=== PATIENT | female | born 1995 | race Caucasian/White ===

== ENCOUNTER 2018-07-15 20:02 | Emergency (ER) | payer OTHER, SELFPAY ==
[2018-07-15 20:04] VITALS: BP 156/99; PULSE 83; RESP 17; TEMP 36.4; O2SAT 99; BMI 27.1
[2018-07-15 20:22] LABS: Absolute Lymphocyte Count 2.16 X10^3/ul (0.83-4.51); Absolute Neutrophil Count 7.5 X10^3/uL (2.0-7.7); Basophil# 0.02 X10^3/uL; Basophil% 0.2 % (0-1); Hematocrit 36.8 % (37-47); Hemoglobin 11.6 g/dl (12.0-15.0); Lymphocyte # 2.16 X10^3/ul (4.0); Lymphocyte % 20.7 % (19-41); Mean Corp Hgb Conc 31.5 g/gl (32-36); Mean Corpuscular Hgb 26.5 pg (27.0-32.0); Mean Platelet Vol. 9.6 fl (6.2-12.0); Monocyte# 0.73 X10^3/uL; Neutrophil # 7.49 X10^3/uL (2.7-7.7); Platelet Count 328 K/mm3 (150-450); RBC Distribution Width CV 15.3 % (11.6-14.6); RBC Distribution Width SD 47.4 fl (35.1-43.9); Red Blood Count 4.38 M/mm3 (4.2-5.4); White Blood Count 10.4 K/mm3 (4.4-11.0)
[2018-07-15 20:36] LABS: Red Blood Cells-Urine 0 SEEN /hpf (0-5)
[2018-07-15 20:38] LABS: Anion Gap 8 (5-15); BUN 15 mg/dL (7-18); BUN/Creat Ratio 18.6 RATIO (10-20); Calcium,Total 9.4 mg/dL (8.5-10.1); Chloride 105 mmol/L (98-107); Creatinine, Serum 0.81 mg/dL (0.55-1.02); EST Glomerular Filtration Rate 92 mL/min (>60); Est Glom Filt Rate - Afr Amer 112 mL/min (>60); Estimated Creatinine Clearance 88.59 ml/min; Glucose 92 mg/dL (74-106); POSITIVE COUNT NO; POSITIVE DIFFERENTIAL NO; POSITIVE MORPHOLOGY NO; Potassium 3.6 mmol/L (3.5-5.1); Sodium Level 137 mmol/L (136-145)
[2018-07-15 20:40] LABS: Color, Urine Yellow (Yellow); Glucose, Dipstick Normal (Normal); Ketone-Dipstick 5 mg/dl (Negative); Leukocyte Esterase-Dipstick Negative /ul (Negative); Nitrite-Dipstick Negative (Negative); Occult Blood-Urine Negative /ul (Negative); Protein-Dipstick Negative (Negative); Specific Gravity, Urine 1.015 (1.002-1.030); Urine Bilirubin Dipstick Negative (Negative); Urine Clarity Sl. Cloudy (Clear); Urine Urobilinogen Normal (Normal)
[2018-07-15 20:57] LABS: Bacteria 1+ /hpf (None Seen); Mucous, Urine 1+ /hpf (<or=2+); Squamous Epithelial Cells - UA 0-5 SEEN /hpf (5-10); White Blood Cells 0-5 SEEN /hpf (0-5)
[2018-07-15 21:01] LABS: Pregnancy, Serum, hCG Quali. NEGATIVE Negative (0-9 Nonpreg)
--- NOTE | 2018-07-15 21:56 | CT_ITS ---
STUDY: CT ABDOMEN AND PELVIS WITHOUT CONTRAST REASON FOR EXAM: Female, 22 years old. Bilateral flank pain. Hypertension. History of appendectomy. RADIATION DOSAGE (If Supplied By Facility): CTDIvol = ( 6.96 ) mGy, DLP = ( 312.93 ) mGycm TECHNIQUE: Transaxial images were obtained from the dome of the diaphragm to the symphysis pubis without oral contrast, and without intravenous contrast. Sagittal and coronal images were reconstructed. Individualized dose optimization techniques were used for this CT. COMPARISON: Ultrasound of the kidneys, March 22, 2017 FINDINGS: The visualized lung bases are unremarkable. The visualized portions of the heart are within normal limits. Normal liver. Normal gallbladder and extrahepatic biliary system. Normal spleen. Normal pancreas. Normal bilateral adrenal glands. Normal right kidney. Normal left kidney. Normal visualized ureters. Normal visualized stomach. Normal small intestine. Normal colon. There is non-visualization of the appendix. Normal abdominal aorta. Normal inferior vena cava. Normal retroperitoneum. Normal urinary bladder. Uterus is anteverted and midline. There is no mass. Normal ovaries. There is no pelvic lymphadenopathy. No free air or free fluid is seen within the peritoneal cavity. Small umbilical hernia of omental fat. The abdominal wall is otherwise unremarkable. Normal osseous structures. CT/Abdomen/Pelvis without Cont IMPRESSION: No evidence of renal, ureteral or urinary bladder abnormality. No evidence of acute intra-abdominal process. Electronically Signed: Bruce Lim DO at 22:25 EST Tel [phone], Service support ,
--- NOTE | 2018-07-15 22:12 | ED.DCSUM_ITS ---
- ER Visit Summary Date of Service: 07/15/18 Chief Complaint: Right flank pain History of Present Illness: The patient is a 22 F presenting with right flank pain. She states this feels similar to when she had acute kidney injury in the past. She denies any urinary complaints. Denies lifting or trauma. She is taking Tylenol at home with some relief. She denies fever. Denies abdominal pain. Denies chest pain or shortness of breath. History of previous appendectomy Physical Examination: Vitals are stable. Patient is afebrile. Alert no acute distress. HEENT exam is unremarkable. Neck is supple. Lungs are clear and equal bilaterally. Heart is regular rate and rhythm. Abdomen is soft mild right lower quadrant tenderness with no rebound or guarding Back right CVA tenderness Extremities are unremarkable. Skin is warm and dry. No focal neurologic deficit. Remainder of exam is unremarkable. Emergency Department Course and Treatment: Patient given morphine, Zofran IV. CBC, chemistries unremarkable. Urinalysis is unremarkable. HCG negative. CT abdomen pelvis shows no evidence of renal, ureteral or urinary bladder abnormality. No evidence of acute intra-abdominal process. On reevaluation, patient is resting comfortably. She is given prescription for Flexeril. She is advised to take Tylenol. Advised return to ED for any worsening complaints. Advised to follow-up with primary care physician. Disposition: Discharge home Impression: Right flank pain This note was generated with [employer] dictation software. It may contain incorrect words, spelling, and punctuation that were not noted in review of the chart prior to signing ED Disposition - Plan for ED Patient: Chief Complaint: Flank Pain Referrals: Darvin Holley MD [Primary Care Provider] -
[2018-07-15] MEDS: HYDROmorphone 1 MG/ML Syringe IV (22:13)
[2018-07-15] MEDS: Ondansetron 4 MG/2 ML Vial IV (22:13)
[2018-07-15 22:17] VITALS: BP 131/70; PULSE 61; RESP 20; O2SAT 99
--- NOTE | 2018-07-15 23:49 | ED.DEP ---
ED Disposition - Plan for ED Patient: Chief Complaint: Flank Pain Instructions: ED Flank Pain Uncertain Cause Prescriptions: Cyclobenzaprine [Flexeril] 10 mg PO TID PRN #20 tablet PRN Reason: Muscle Spasm Referrals: Darvni Holley MD [Primary Care Provider] -
[2018-07-16 00:02] VITALS: BP 138/71; PULSE 57; RESP 16; O2SAT 97
== END 2018-07-16 00:03 | disposition home or self-care (01) ==
PROVIDERS: Emergency Provider Emergency Medicine; Family Provider Family Medicine; PCP Family Medicine
DX: R10.9 Unspecified abdominal pain (principal); I10 Essential (primary) hypertension; F32.9 Major depressive disorder, single episode, unspecified; Z72.0 Tobacco use; Z79.899 Other long term (current) drug therapy
CPT/HCPCS: 74176; 80048; 81001; 84703; 85025; 96374; 96375; 99283; A4216; J2405

== ENCOUNTER → 2021-06-14 | Outpatient (CLI) | payer OTHER, SELFPAY ==
[2021-06-17 09:08] LABS: Chlamydia By Nucleic Acid AMP Negative (Negative)
[2021-06-17 13:51] LABS: Gonococcus By Nucleic Acid AMP Negative (Negative)
== END | disposition home or self-care (01) ==
PROVIDERS: Visit Provider Obstetrics & Gynecology
DX: O09.90 Supervision of high risk pregnancy, unspecified, unspecified trimester (principal); Z3A.00 Weeks of gestation of pregnancy not specified
CPT/HCPCS: 87491; 87591

== ENCOUNTER 2021-09-13 13:01 | Outpatient (CLI) | payer OTHER, SELFPAY ==
[2021-09-13 13:34] LABS: Absolute Lymphocyte Count 1.68 X10^3/uL (0.83-4.51); Absolute Neutrophil Count 13.6 X10^3/uL (2.0-7.7); Basophil# 0.02 X10^3/uL; Basophil% 0.1 % (0-1); Eosinophil# 0.04 X10^3/uL; Eosinophils% 0.3 % (0-5); Hemoglobin 12.4 g/dL (12.0-15.0); Lymphocyte # 1.68 X10^3/ul (0.83-4.51); Lymphocyte % 10.5 % (19-41); Mean Corp Hgb Conc 32.6 g/dL (32-36); Mean Corpuscular Hgb 30.4 pg (27.0-32.0); Mean Corpuscular Volume 93.1 fL (81-99); Mean Platelet Vol. 10.2 fl (6.2-12.0); Monocyte# 0.54 X10^3/uL; Monocyte% 3.4 % (0-10); NRBC Flagged by Analyzer 0 % (0-5); Neutrophil # 13.57 X10^3/uL (2.7-7.7); Neutrophil % 84.9 % (47-70); Platelet Count 241 K/mm3 (150-450); RBC Distribution Width CV 12.7 % (11.6-14.6); RBC Distribution Width SD 43.7 fl (35.1-43.9); Red Blood Count 4.08 M/mm3 (4.2-5.4)
--- NOTE | 2021-09-13 13:53 | US_ITS ---
STUDY: SECOND AND THIRD TRIMESTER OBSTETRICAL ULTRASOUND REASON FOR EXAM: Female, 25 years old anatomy LMP: 04/08/2021. TECHNIQUE: Transabdominal and Transvaginal TECHNICAL QUALITY: Adequate. PRIOR ULTRASOUND: None. FINDINGS: There is a single intrauterine fetus. The fetus is in a breech presentation. There is demonstrated cardiac activity with a heart rate of 167 bpm. There is a normal amniotic fluid volume. The largest amniotic fluid pocket measures 6.1 cm x 6.7 cm. The amniotic fluid index (JOE) is within normal limits. The placenta is posterior in location and is not low lying. There are Grade 0 placental changes. The cervix measures 4.3 cm in length. The adnexal regions are not visualized. BIOMETRY: BPD: 5.06 cm: 21 weeks, 2 days HC: 20.14 cm: 22 weeks, 2 days AC: 17.4 cm: 22 weeks, 2 days FL: 3.85 cm: 22 weeks, 2 days CI: 69.8% FL/BPD: 76% FL/HC: FL/AC: 22.1% HC/AC: 1.16 age by current US: 22 weeks, 0 days. CATIE by current US: 01/17/2022. Estimated weight: 487 grams, +/- 73 grams, 27 %. Age by LMP: 22weeks, 4 days. CATIE by LMP: 01/13/2022. ANATOMY: Gender: Indeterminant Cranium: Normal lateral ventricles. Normal choroid plexus. Normal cerebellum. Normal cisterna magna. Normal face, nose and lips. Chest: Normal 4-chamber heart. Abdomen/Pelvis: Normal diaphragm. Normal stomach. Normal abdominal wall. Normal cord insertion. Normal 3 vessel cord. Normal kidneys. Normal bladder. Spine: Normal cervical spine. Normal thoracic spine. Normal lumbar spine. Normal sacrum. Extremities: Normal bilateral upper extremities. Normal bilateral lower extremities. IMPRESSION: Single live intrauterine gestation with mean gestational age of 22 weeks. Electronically Signed: Khoi Hernandez MD at 15:32 EST , Service support , STUDY: FIRST TRIMESTER OBSTETRICAL ULTRASOUND REASON FOR EXAM: Female, 25 years old . Cervical length measurement. LMP: 04/08/2021 TECHNIQUE: Transvaginal TECHNICAL QUALITY: Adequate. PRIOR ULTRASOUND: None. FINDINGS: The cervical length measures 4.3 cm. US/OB Anatomy Scan IMPRESSION: Cervical length measures 4.3 cm. Electronically Signed: Khoi Hernandez MD at 15:32 EST , Service support ,
[2021-09-13 14:16] LABS: ALB/GLOB Ratio 0.8 RATIO (0.9-2.4); AST(SGOT) 15 U/L (15-37); Alanine Aminotransfer ALT/SGPT 21 U/L (13-56); Albumin, Serum 3.1 g/dL (3.2-5.0); Alkaline Phosphatase 80 U/L (45-117); Anion Gap 7 (5-15); BUN 8 mg/dL (7-18); BUN/Creat Ratio 12.8 RATIO (10-20); Calcium,Total 8.9 mg/dL (8.5-10.1); Chloride 106 mmol/L (98-107); Creatinine, Serum 0.62 mg/dL (0.55-1.02); EST Glomerular Filtration Rate 121 mL/min (>60); Est Glom Filt Rate - Afr Amer 147 mL/min (>60); Globulin 3.8 g/dL (2.2-4.2); Glucose 149 mg/dL (74-106); Glucose Challenge Gest 1H 50g 149 mg/dL (70-140); Potassium 3.6 mmol/L (3.5-5.1); Protein, Total 6.9 g/dL (6.4-8.2); Sodium Level 137 mmol/L (136-145)
[2021-09-13 15:12] LABS: HIV - WCH Non-Reactive (Nonreactive); Hepatitis B Surface Antigen Non-Reactive (Nonreactive); Hepatitis C Antibody Non-Reactive (Nonreactive); Rubella IgG Reactive (Nonreactive); Syphilis Antibodies Non-reactive
== END 2021-09-13 23:59 | disposition short-term general hospital (02) ==
PROVIDERS: Obstetrics & Gynecology; Referring Provider Obstetrics & Gynecology; Visit Provider Obstetrics & Gynecology
DX: O09.92 Supervision of high risk pregnancy, unspecified, second trimester (principal); O16.2 Unspecified maternal hypertension, second trimester; O99.212 Obesity complicating pregnancy, second trimester; E66.9 Obesity, unspecified; Z3A.22 22 weeks gestation of pregnancy
CPT/HCPCS: 36415; 76805; 76817; 80053; 82950; 85025; 86703; 86762; 86780; 86803; 86850; 86900; 86901; 87340

== ENCOUNTER 2021-09-27 09:56 | Outpatient (CLI) | payer OTHER, SELFPAY ==
[2021-09-27 11:15] LABS: Glucose GTT-Gestation. Fasting 91 mg/dL (<105)
[2021-09-27 12:37] LABS: Glucose GTT-Gestational 1 Hr 176 mg/dL (<190)
[2021-09-27 13:14] LABS: Glucose GTT-Gestational 2 Hr 140 mg/dL (<165)
[2021-09-27 14:01] LABS: Glucose GTT-Gestational 3 Hr 47 L (<145)
== END 2021-09-27 23:59 | disposition short-term general hospital (02) ==
PROVIDERS: Referring Provider Obstetrics & Gynecology; Visit Provider Obstetrics & Gynecology
DX: Z13.1 Encounter for screening for diabetes mellitus (principal)
CPT/HCPCS: 36415; 82951; 82952

== ENCOUNTER 2021-10-03 16:50 | Observation (INO) | payer OTHER, SELFPAY ==
[2021-10-03 16:58] VITALS: BMI 34.1
[2021-10-03 17:03] VITALS: BP 141/75; PULSE 90; TEMP 36.6; O2SAT 92
--- NOTE | 2021-10-03 17:40 | US_ITS ---
STUDY: SECOND AND THIRD TRIMESTER OBSTETRICAL ULTRASOUND - LIMITED REASON FOR EXAM: Female, 25 years old. Vaginal bleeding. LMP: 04/08/2021. PRIOR ULTRASOUND: 09/13/2021. TECHNIQUE: Transabdominal and Transvaginal TECHNICAL QUALITY: Adequate. FINDINGS: There is a single intrauterine fetus. The fetus is in a cephalic presentation. There is demonstrated cardiac activity with a heart rate of 171 bpm. There is a normal amniotic fluid volume. The largest amniotic fluid pocket measures 3.4 cm. The placenta is posterior and low lying but not previa in location. The edge of the placenta is 0.4 cm away from the internal os There are Grade 0 placental changes. The cervix measures 3.5 cm cm in length. BIOMETRY: Age by LMP: 25 weeks, 3 days. CATIE by LMP: 01/13/2022.. age by prior US: 24 weeks, 6 days. CATIE by prior US: 01/17/2022. US/OB Limited (No Biometrics) IMPRESSION: 1. Low-lying posterior grade 0 placenta. 2. Closed cervix. 3. Live single intrauterine in a cephalic presentation. Electronically Signed: Bruce Lim DO at 22:09 EST ,
[2021-10-03 18:11] LABS: Absolute Lymphocyte Count 2.28 X10^3/uL (0.83-4.51); Absolute Neutrophil Count 15.6 X10^3/uL (2.0-7.7); Basophil# 0.03 X10^3/uL; Basophil% 0.2 % (0-1); Eosinophil# 0.05 X10^3/uL; Eosinophils% 0.3 % (0-5); Hematocrit 33.1 % (37-47); Hemoglobin 11.4 g/dL (12.0-15.0); Lymphocyte # 2.28 X10^3/ul (0.83-4.51); Lymphocyte % 11.9 % (19-41); Mean Corp Hgb Conc 34.4 g/dL (32-36); Mean Corpuscular Hgb 31.8 pg (27.0-32.0); Mean Corpuscular Volume 92.2 fL (81-99); Mean Platelet Vol. 10.3 fl (6.2-12.0); Monocyte# 0.87 X10^3/uL; Monocyte% 4.6 % (0-10); NRBC Flagged by Analyzer 0 % (0-5); Neutrophil # 15.63 X10^3/uL (2.7-7.7); Neutrophil % 81.8 % (47-70); Platelet Count 234 K/mm3 (150-450); RBC Distribution Width CV 12.6 % (11.6-14.6); RBC Distribution Width SD 42.5 fl (35.1-43.9); Red Blood Count 3.59 M/mm3 (4.2-5.4); White Blood Count 19.1 K/mm3 (4.4-11.0)
[2021-10-03 18:26] LABS: Fibrinogen 501 mg/dl (203-444)
--- NOTE | 2021-10-03 18:51 | HP.PCM.OB_ITS ---
HPI - General General Date of Admission: 10/03/21 HPI Narrative LYNNE SAL, is a 25 F who presents with vaginal bleeding. Patient was working on the floor today and noticed some vaginal bleeding with wiping. She denies any contractions and admits good movement. Upon evaluation there was a quarter size clot in the vault and the cervix is closed thick and high. heart rate is reassuring and no contractions are present. Maternal Data Information CATIE Calculator Estimated Delivery Date Method Current WG Current Estimate 01/13/22 Ultrasound #1 25w 3d Other Estimates 12/31/21 LMP (Certain) 27w 2d [facility] Medical History (Updated 10/03/21 @ 19:[address] Cyndy Sweeney MD) Abnormal glucose affecting Acute kidney injury Bipolar 1 disorder Hypertension Home Medications sertraline 1 tab PO DAILY 07/15/18 [History Last Taken Unknown] multivitamin no.47-iron fum 27 mg-folate no.1 1 mg-dha 300 mg capsule cap PO 05/30/21 [History Last Taken Unknown] oxcarbazepine 600 mg tablet 450 mg PO ONCE tab 05/30/21 [History Last Taken Unknown] hydroxyzine pamoate 50 mg capsule 50 mg PO Q6H PRN #30 cap 06/14/21 [Rx Last Taken Unknown] diphenhydramine 25 mg-acetaminophen 500 mg/15 mL oral solution ml PO 08/30/21 [History Last Taken Unknown] trazodone 50 mg tablet See Rx Instructions .ROUTE .COMPLEX #30 tab 09/19/21 [Rx Last Taken Unknown] Allergy/AdvReac Type Severity Reaction Status Date / Time morphine Allergy Hives Verified 10/03/21 16:58 Family History Other Breast cancer Cancer Heart disease Surgical History H/O chest tube placement History of appendectomy Social History adopted: No household members: family housing: house current occupational status: employed current occupation: [employer]- [employer] pets and animals: Yes Smoking Status: Current every day smoker second hand exposure: Yes alcohol intake: current alcohol intake frequency: a few times a week substance use type: former substance user seatbelt use: always do you feel safe at home: Yes additional social history: - Edgar History 1 Elective abortions Hx Para Spontaneous abortions Hx # Term Pregnancies Ectopic pregnancies Hx # Pregnancies Multiple births # of living children Visit Details Expected Delivery Route/Plan Labor Preferences- CB/BF classes: [] labor support person: [] labor intervention preferences: [] pain management options preferred: [] cut cord/dad catch: [] : [] PP control planned: [] discussed possible routes of delivery and associated risks: [] special requests: [] Plans Covid status: naturally immune. counseled regarding risk of covid in vs vaccination and declined vaccination Flu vaccine: Tdap vaccine: [] Rhogam: [] LARC form signed: [] Problem list reviewed and updated with the most current plan of care details and appropriate orders placed. Relevant counseling for the gestational age provided. Continue routine care and follow up unless otherwise noted in visit notes/problem list details OB Flowsheet Initial Weight: Not Recorded Date -?-?-?-?-?-?-?-?-?-?-?-?- EGA Weight BP Urine Prot -?-?-?-?-?-?-?-?-?-?-?-?- Glucose FHR FuHt Pres Dilation -?-?-?-?-?-?-?-?-?-?-?-?- Effaced St Visit Note 06/14/21 -?-?-?-?-?-?-?-?-?-?-?-?- 9w 4d 193 lb 8 oz 134/86 -?-?-?-?-?-?-?-?-?-?-?-?- 170 -?-?-?-?-?-?-?-?-?-?-?-?- SM- CRL 2.5cm NO T cons with LMP 07/19/21 -?-?-?-?-?-?-?-?-?-?-?-?- 14w 4d 194 lb 6 oz 118/78 Nega tive -?-?-?-?-?-?-?-?-?-?-?-?- Negative 140 -?-?-?-?-?-?-?-?-?-?-?-?- JV- no lof, vagi nal bleeding, or cramping. Plan for anatomy scan at at 20 weeks. 08/30/21 -?-?-?-?-?-?-?-?-?-?-?-?- 20w 4d 196 lb 120/80 Negative -?-?-?-?-?-?-?-?-?-?-?-?- Negative 145 -?-?-?-?-?-?-?-?-?-?-?-?- JV- no lof, vagi nal bleeding, or dec fm. no complaints. Pt is taking trazadone to sleep. discussed trying something different in the 3rd trimester 10/03/21 -?-?-?-?-?-?-?-?-?-?-?-?- 25w 3d 199 lb 141/75 -?-?-?-?-?-?-?-?-?-?-?-?- -?-?-?-?-?-?-?-?-?-?-?-?- NST FHR Rate Baby A Baseline: 150 Variability:: Moderate Accelerations:: 10 x 10 Decelerations:: None NST Reactive:: Yes FHR Category:: Category I Uterine Activity:: no regular ROS Review of Systems ROS Unobtainable: due to mental status and other Constitutional Constitutional: Reports systems reviewed and no addt'l complaints, except as documented; Denies as per HPI, change in weight, fatigue, fever(s), malaise, weakness or other Eyes Eyes: Reports systems reviewed and no addt'l complaints, except as documented; Denies as per HPI, change in vision or other ENT HEENT: Reports systems reviewed and no addt'l complaints, except as documented Respiratory/Chest Respiratory/Chest: Reports systems reviewed and no addt'l complaints, except as documented Gastrointestinal Gastrointestinal: Reports systems reviewed and no addt'l complaints, except as documented and as per HPI Genitourinary Genitourinary: Reports as per HPI Musculoskeletal Musculoskeletal: Reports systems reviewed and no addt'l complaints, except as documented Neurologic Neurologic: Reports systems reviewed and no addt'l complaints, except as documented Psychiatric Psychiatric: Reports systems reviewed and no addt'l complaints, except as docum ented Endocrine Endocrinology: Reports systems reviewed and no addt'l complaints, except as documented Hematologic/Lymphatic Hematologic/Lymphatic: Reports systems reviewed and no addt'l complaints, except as documented Vital Signs Vital Signs Vital Signs: 10/03/21 17:03 Temperature 97.9 F Temperature Source Temporal Pulse Rate 90 Blood Pressure 141/75 H BP Systolic 141 BP Diastolic 75 Pulse Ox 92 Weight Weight: 199 lb Body Mass Index (BMI) 34.1 Physical Exam Const alert, oriented x3 and no apparent distress HEENT normocephalic Head and Scalp: atraumatic Eyes EOMs intact bilaterally and conjunctivae normal Neck full ROM, no lymphadenopathy, supple and thyroid normal General: trachea midline Lymph Lymphatic: no lymphadenopathy noted Resp normal respiratory effort, no retractions and no use of accessory muscles GI soft to palpation, non-distended and no masses Inspection: Negative for abdominal distention Extremity normal to inspection Skin no rashes or lesions noted Neuro moves all extremities Psych mental status grossly normal Labs Labs Labs: Blood Type O POSITIVE Antibody Screen NEGATIVE Hct 33.1 % (37-47) L Hgb 11.4 g/dL (12.0-15.0) L Obstetrics US Syphilis Total Ab Non-reactive Rubella IgG Antibody Reactive (Nonreactive) Hep Bs Antigen Non-Reactive (Nonreactive) Neisseria gonorrhoeae DNA (ZOEY) Negative (Negative) HIV 1&2 Antibody Non-Reactive (Nonreactive) Glucose 1 Hr 50 gm 149 mg/dL (70-140) H Assessment & Plan (1) Low-lying placenta in second trimester: COMMENT: not low lying at anatomy scan but now 1.4 cm on scan 10/03 (2) Vaginal bleeding during : COMMENT: observation overnight., no contractions. bmz given. serial cbc fibrinogen, coags. CL 3.4cm, closed (3) Abnormal glucose affecting : COMMENT: ordered 3 hr GTT (4) Stress at home: COMMENT: father , ambien PRN (5) Obesity affecting : COMMENT: 1 tm gct ordered (6) H/O cannabis abuse: COMMENT: encouraged cessation. random tox (7) Tobacco smoking affecting : COMMENT: pt is currently weaning herself (8) Supervision of high risk , antepartum: COMMENT: PRR CATIE: 12/31/21 Spouse: Edgar (9) : QUALIFIERS: Weeks of gestation: 20 weeks Qualified Code(s): Z3A.20 - 20 weeks gestation of COMMENT: nl anatomy, declined genetic and carrier, abnormal 1 hr glucose (10) COVID-19 affecting , antepartum: COMMENT: started baby ASA, growth US starting after 28 weeks (11) Bipolar 1 disorder: COMMENT: on Zoloft, weaning oxcarbazapine off. sees PCP, refer to psychiatry. vistaril prn and for sleep. (12) Hypertension: COMMENT: no meds. previously on Lisinopril. baseline meds ordered (13) Leukocytosis: COMMENT: UAC collected, covid collected, no overt symptoms of infection. cmp PLAN: see A/P comments for plan information. celestone given for prematurity. exp management. Charges/Coding Multi Select Codes Visit Charges Observation E&M Codin Initial observation care L3 Urinary/Genital Urinary/Genital CPT Codes: 21452-17 non-stress test Interp
[2021-10-03] MEDS: Lactated Ringers 1,000 ML 1000 ML IV (19:25)
[2021-10-03 19:42] VITALS: TEMP 36.7
[2021-10-03 19:45] VITALS: BP 137/66; PULSE 76
[2021-10-03 19:47] LABS: Bacteria 0 SEEN /hpf (None Seen); Mucous, Urine 0 SEEN /hpf (<or=2+); Red Blood Cells-Urine 0 SEEN /hpf (0-5); Squamous Epithelial Cells - UA 0 SEEN /hpf (5-10); White Blood Cells 0 SEEN /hpf (0-5)
[2021-10-03 19:55] LABS: ALB/GLOB Ratio 0.9 RATIO (0.9-2.4); AST(SGOT) 12 U/L (15-37); Alanine Aminotransfer ALT/SGPT 17 U/L (13-56); Albumin, Serum 3.1 g/dL (3.2-5.0); Alkaline Phosphatase 91 U/L (45-117); Anion Gap 10 (5-15); BUN 13 mg/dL (7-18); BUN/Creat Ratio 20.7 RATIO (10-20); Chloride 106 mmol/L (98-107); Creatinine, Serum 0.63 mg/dL (0.55-1.02); EST Glomerular Filtration Rate 120 mL/min (>60); Est Glom Filt Rate - Afr Amer 146 mL/min (>60); Estimated Creatinine Clearance 115.83 ml/min; Globulin 3.6 g/dL (2.2-4.2); Glucose 81 mg/dL (74-106); Potassium 3.7 mmol/L (3.5-5.1); Protein, Total 6.7 g/dL (6.4-8.2); Sodium Level 137 mmol/L (136-145)
[2021-10-03 19:58] LABS: Color, Urine Yellow (Yellow); Glucose, Dipstick Normal (Normal); Ketone-Dipstick 50 mg/dl (Negative); Leukocyte Esterase-Dipstick Negative /ul (Negative); Nitrite-Dipstick Negative (Negative); Occult Blood-Urine 150 /ul (Negative); Protein-Dipstick Negative (Negative); Specific Gravity, Urine 1.015 (1.002-1.030); Urine Bilirubin Dipstick Negative (Negative); Urine Clarity Sl. Cloudy (Clear); Urine Urobilinogen Normal (Normal)
[2021-10-03 19:59] LABS: International Normalized Ratio 0.9; Partial Thromboplast Time 27.6 Seconds (24.1-36.2); Prothrombin Time (Protime)PT. 11.9 SECONDS (11.7-14.9)
[2021-10-03 20:13] LABS: Amphetamine Urine VISTA NEGATIVE (<1000 ng/mL); Barbiturate Urine VISTA NEGATIVE (< 200 ng/mL); Benzodiazepine Urine VISTA NEGATIVE (< 200 ng/mL); Cocaine Urine VISTA NEGATIVE (< 300 ng/mL); Ecstacy Urine VISTA NEGATIVE (< 500 ng/mL); Methadone Urine VISTA NEGATIVE (< 300 ng/mL); PCP Urine VISTA NEGATIVE (< 25 ng/mL); THC Urine VISTA NEGATIVE (< 50 ng/mL); Vista UDS pH Range 5
[2021-10-03] MEDS: Betamethasone/Betamethasone 30 MG/5 ML Vial 12 MG IM (20:24)
[2021-10-03] MEDS: Acetaminophen 325 MG Tablet 650 MG PO (21:54)
[2021-10-03] MEDS: Sertraline 100 MG Tablet PO (21:55)
[2021-10-03] MEDS: DiphenhydrAMINE 25 MG Capsule 50 MG PO (21:55)
[2021-10-03] MEDS: traZODone 50 MG Tablet PO ×2 (21:56→22:03)
[2021-10-03 23:22] VITALS: BP 116/61; PULSE 85; TEMP 36.9
[2021-10-03 23:23] VITALS: PULSE 90; O2SAT 98
[2021-10-04 04:21] LABS: Absolute Neutrophil Count 15.2 X10^3/uL (2.0-7.7); Basophil# 0.02 X10^3/uL; Basophil% 0.1 % (0-1); Hemoglobin 10.9 g/dL (12.0-15.0); Lymphocyte % 7.2 % (19-41); Mean Corpuscular Hgb 30.7 pg (27.0-32.0); Mean Platelet Vol. 10.6 fl (6.2-12.0); Monocyte# 0.19 X10^3/uL; Monocyte% 1.1 % (0-10); NRBC Flagged by Analyzer 0 % (0-5); Neutrophil # 15.17 X10^3/uL (2.7-7.7); Neutrophil % 90.5 % (47-70); Platelet Count 233 K/mm3 (150-450); RBC Distribution Width CV 12.6 % (11.6-14.6); RBC Distribution Width SD 43.1 fl (35.1-43.9); Red Blood Count 3.55 M/mm3 (4.2-5.4); White Blood Count 16.8 K/mm3 (4.4-11.0)
[2021-10-04 04:34] LABS: ALB/GLOB Ratio 0.7 RATIO (0.9-2.4); AST(SGOT) 11 U/L (15-37); Alanine Aminotransfer ALT/SGPT 17 U/L (13-56); Albumin, Serum 2.7 g/dL (3.2-5.0); Alkaline Phosphatase 91 U/L (45-117); Anion Gap 9 (5-15); BUN 12 mg/dL (7-18); BUN/Creat Ratio 20.2 RATIO (10-20); Calcium,Total 8.4 mg/dL (8.5-10.1); Chloride 108 mmol/L (98-107); Creatinine, Serum 0.59 mg/dL (0.55-1.02); EST Glomerular Filtration Rate 129 mL/min (>60); Est Glom Filt Rate - Afr Amer 155 mL/min (>60); Estimated Creatinine Clearance 123.68 ml/min; Globulin 3.7 g/dL (2.2-4.2); Glucose 135 mg/dL (74-106); Protein, Total 6.4 g/dL (6.4-8.2); Sodium Level 137 mmol/L (136-145)
[2021-10-04 04:41] VITALS: TEMP 36.6
[2021-10-04 04:42] VITALS: BP 90/50; PULSE 71
[2021-10-04 04:43] VITALS: BP 111/59; PULSE 67
[2021-10-04 05:00] LABS: Partial Thromboplast Time 29.1 Seconds (24.1-36.2)
[2021-10-04 05:04] LABS: Fibrinogen 323 mg/dl (203-444)
--- NOTE | 2021-10-04 05:41 | OB.TRI.HP_ITS ---
HPI - General General Date of Admission: 10/03/21 HPI Narrative LYNNE SAL, is a 25 F who presentsfor vaginal bleeding, admitted overnight. she had one quarter size clot, dark, no active red bleeding. She denies any cramping or contractions. She admits good movement. Maternal Data Information CATIE Calculator Estimated Delivery Date Method Current WG Current Estimate 01/13/22 Ultrasound #1 25w 4d Other Estimates 12/31/21 LMP (Certain) 27w 3d PFSH PFS Medical History (Updated 10/04/21 @ 05:[address] Cyndy Sweeney MD) Abnormal glucose affecting Acute kidney injury Bipolar 1 disorder Hypertension Home Medications sertraline 1 tab PO DAILY 07/15/18 [History Last Taken Unknown] multivitamin no.47-iron fum 27 mg-folate no.1 1 mg-dha 300 mg capsule 1 cap PO DAILY 05/30/21 [History Last Taken Unknown] hydroxyzine pamoate 50 mg capsule 50 mg PO Q6H PRN #30 cap 06/14/21 [Rx Last Taken Unknown] diphenhydramine 25 mg-acetaminophen 500 mg/15 mL oral solution ml PO 08/30/21 [History Last Taken Unknown] trazodone 50 mg tablet See Rx Instructions .ROUTE .COMPLEX #30 tab 09/19/21 [Rx Last Taken Unknown] Allergy/AdvReac Type Severity Reaction Status Date / Time morphine Allergy Hives Verified 10/03/21 16:58 Family History Other Breast cancer Cancer Heart disease Surgical History H/O chest tube placement History of appendectomy Social History adopted: No household members: family housing: house current occupational status: employed current occupation: [employer]- [employer] pets and animals: Yes Smoking Status: Current every day smoker second hand exposure: Yes alcohol intake: current alcohol intake frequency: a few times a week substance use type: former substance user seatbelt use: always do you feel safe at home: Yes additional social history: - Edgar History 1 Elective abortions Hx Para Spontaneous abortions Hx # Term Pregnancies Ectopic pregnancies Hx # Pregnancies Multiple births # of living children Visit Details Expected Delivery Route/Plan Labor Preferences- CB/BF classes: [] labor support person: [] labor intervention preferences: [] pain management options preferred: [] cut cord/dad catch: [] : [] PP control planned: [] discussed possible routes of delivery and associated risks: [] special requests: [] Plans Covid status: naturally immune. counseled regarding risk of covid in vs vaccination and declined vaccination Flu vaccine: Tdap vaccine: [] Rhogam: [] LARC form signed: [] Problem list reviewed and updated with the most current plan of care details and appropriate orders placed. Relevant counseling for the gestational age provided. Continue routine care and follow up unless otherwise noted in visit notes/problem list details OB Flowsheet Initial Weight: Not Recorded Date -?-?-?-?-?-?-?-?-?-?-?-?- EGA Weight BP Urine Prot -?-?-?-?-?-?-?-?-?-?-?-?- Glucose FHR FuHt Pres Dilation -?-?-?-?-?-?-?-?-?-?-?-?- Effaced St Visit Note 06/14/21 -?-?-?-?-?-?-?-?-?-?-?-?- 9w 4d 193 lb 8 oz 134/86 -?-?-?-?-?-?-?--?-?-?-?-?- 170 -?-?-?-?-?-?-?-?-?-?-?-?- SM- CRL 2.5cm NO T cons with LMP 07/19/21 -?-?-?-?-?-?-?-?-?-?-?-?- 14w 4d 194 lb 6 oz 118/78 Nega tive -?-?-?-?-?-?-?-?-?-?-?-?- Negative 140 -?-?-?-?-?-?-?-?-?-?-?-?- JV- no lof, vagi nal bleeding, or cramping. Plan for anatomy scan at at 20 weeks. 08/30/21 -?-?-?-?-?-?-?-?-?-?-?-?- 20w 4d 196 lb 120/80 Negative -?-?-?-?-?-?-?-?-?-?-?-?- Negative 145 -?-?-?-?-?-?-?-?-?-?-?-?- JV- no lof, vagi nal bleeding, or dec fm. no complaints. Pt is taking trazadone to sleep. discussed trying something different in the 3rd trimester 10/03/21 -?-?-?-?-?-?-?-?-?-?-?-?- 25w 3d 199 lb 141/75 137/66 116/61 90/50 111/59 Negative mg/dl (Nega tive) -?-?-?-?-?-?-?-?-?-?-?-?- -?-?-?-?-?-?-?-?-?-?-?-?- ROS Constitutional Constitutional: Reports systems reviewed and no addt'l complaints, except as doc umented Gastrointestinal Gastrointestinal: Reports as per HPI Physical Exam Const alert, oriented x3 and no apparent distress HEENT Head and Scalp: normocephalic and atraumatic Neck full ROM and no lymphadenopathy Chest inspection of chest normal Resp normal respiratory effort GI GI Narrative: gravid, abdomen nontender, AGA NST FHR Rate Baby A Baseline: 140 Variability:: Moderate Accelerations:: 15 x 15 Decelerations:: None NST Reactive:: Yes FHR Category:: Category I Uterine Activity:: no regular Assessment & Plan (1) Leukocytosis: COMMENT: UAC collected, covid collected, no overt symptoms of infection. cmp (2) Vaginal bleeding during : COMMENT: observation overnight., no contractions. bmz given 10/03. serial cbc fibrinogen, coags. CL 3.4cm, closed (3) Low-lying placenta in second trimester: COMMENT: not low lying at anatomy scan but now 1.4 cm on scan 10/03 (4) Abnormal glucose affecting : COMMENT: nl 3 hr GTT (5) Stress at home: COMMENT: father , ambien PRN (6) Obesity affecting : COMMENT: 1 tm gct ordered (7) H/O cannabis abuse: COMMENT: encouraged cessation. random tox. neg tox on admission 10/03 (8) Tobacco smoking affecting : COMMENT: pt is currently weaning herself (9) Supervision of high risk , antepartum: COMMENT: PRR CATIE: 12/31/21 Spouse: Edgar (10) : QUALIFIERS: Weeks of gestation: 20 weeks Qualified Code(s): Z3A.20 - 20 weeks gestation of COMMENT: nl anatomy, declined genetic and carrier, abnormal 1 hr glucose (11) COVID-19 affecting , antepartum: COMMENT: started baby ASA, growth US starting after 28 weeks (12) Bipolar 1 disorder: COMMENT: on Zoloft, weaning oxcarbazapine off. sees PCP, refer to psychiatry. vistaril prn and for sleep. (13) Hypertension: COMMENT: no meds. previously on Lisinopril. baseline meds ordered (14) Placental abruption: COMMENT: suspect due to bleeding and drop in fibrinogen. transport to [facility]. covid negative PLAN: see a/p details Charges/Coding Multi Select Codes Visit Charges Observation E&M Codin Observation care discharge (transport to outside hospital) Urinary/Genital Urinary/Genital CPT Codes: 43549-44 non-stress test Interp
== END 2021-10-04 06:58 | disposition short-term general hospital (02) ==
PROVIDERS: Admitting Provider Obstetrics & Gynecology; Visit Provider Obstetrics & Gynecology
DX: O44.52 Low lying placenta with hemorrhage, second trimester (principal); F31.9 Bipolar disorder, unspecified; O99.332 Smoking (tobacco) complicating pregnancy, second trimester; F17.200 Nicotine dependence, unspecified, uncomplicated; O10.012 Pre-existing essential hypertension complicating pregnancy, second trimester; O99.342 Other mental disorders complicating pregnancy, second trimester; Z3A.25 25 weeks gestation of pregnancy; O45.92 Premature separation of placenta, unspecified, second trimester; O99.810 Abnormal glucose complicating pregnancy; D72.829 Elevated white blood cell count, unspecified; Z79.899 Other long term (current) drug therapy
CPT/HCPCS: 96360; 36415; 59025; 59050; 76815; 76817; 80053; 80307; 81001; 85025; 85384; 85610; 85730; 86850; 86900; 86901; 87086; 87426; 96372; 99218; J7120; G0378; J0702

== ENCOUNTER 2021-10-09 14:48 | Outpatient (CLI) | payer OTHER, SELFPAY ==
[2021-10-09 15:58] LABS: Absolute Lymphocyte Count 2.81 X10^3/uL (0.83-4.51); Absolute Neutrophil Count 19.7 X10^3/uL (2.0-7.7); Basophil# 0.06 X10^3/uL; Basophil% 0.2 % (0-1); Eosinophil# 0.12 X10^3/uL; Eosinophils% 0.5 % (0-5); Hematocrit 36.7 % (37-47); Hemoglobin 12.1 g/dL (12.0-15.0); Lymphocyte # 2.81 X10^3/ul (0.83-4.51); Lymphocyte % 11.3 % (19-41); Mean Corpuscular Hgb 30.6 pg (27.0-32.0); Mean Corpuscular Volume 92.7 fL (81-99); Mean Platelet Vol. 10.4 fl (6.2-12.0); Monocyte# 1.54 X10^3/uL; Monocyte% 6.2 % (0-10); NRBC Flagged by Analyzer 0 % (0-5); Neutrophil # 19.68 X10^3/uL (2.7-7.7); Neutrophil % 79.5 % (47-70); POSITIVE DIFFERENTIAL YES; Platelet Count 311 K/mm3 (150-450); RBC Distribution Width CV 12.8 % (11.6-14.6); RBC Distribution Width SD 43.9 fl (35.1-43.9); Red Blood Count 3.96 M/mm3 (4.2-5.4); White Blood Count 24.8 K/mm3 (4.4-11.0)
[2021-10-09 16:01] LABS: Differential Indicated SCAN CRITERIA MET
[2021-10-09 16:42] LABS: ALB/GLOB Ratio 0.7 RATIO (0.9-2.4); AST(SGOT) 10 U/L (15-37); Alanine Aminotransfer ALT/SGPT 17 U/L (13-56); Albumin, Serum 2.9 g/dL (3.2-5.0); Alkaline Phosphatase 92 U/L (45-117); Anion Gap 9 (5-15); BUN 10 mg/dL (7-18); BUN/Creat Ratio 17.9 RATIO (10-20); Calcium,Total 8.9 mg/dL (8.5-10.1); Chloride 106 mmol/L (98-107); Creatinine, Serum 0.56 mg/dL (0.55-1.02); EST Glomerular Filtration Rate 138 mL/min (>60); Est Glom Filt Rate - Afr Amer 167 mL/min (>60); Glucose 74 mg/dL (74-106); Lipase 116 U/L (73-393); Potassium 3.6 mmol/L (3.5-5.1); Protein, Total 6.9 g/dL (6.4-8.2); Sodium Level 138 mmol/L (136-145)
[2021-10-09 16:43] LABS: Differential Comment SCANNED
[2021-10-09 16:50] LABS: Fibrinogen 470 mg/dl (203-444)
== END 2021-10-09 23:59 | disposition home or self-care (01) ==
PROVIDERS: Referring Provider Obstetrics & Gynecology; Visit Provider Obstetrics & Gynecology
DX: R10.11 Right upper quadrant pain (principal)
CPT/HCPCS: 36415; 80053; 83690; 85025; 85384

== ENCOUNTER 2021-11-08 19:34 | Outpatient (CLI) | payer OTHER, SELFPAY ==
[2021-11-08 19:41] VITALS: BMI 36.1
[2021-11-08 19:47] VITALS: BP 126/68; PULSE 77; PULSE 87; TEMP 36.6; O2SAT 97
[2021-11-08 19:52] VITALS: PULSE 91; O2SAT 98
--- NOTE | 2021-11-08 20:24 | OB.TRI.HP_ITS ---
HPI - General HPI Narrative TRINA SAL, is a 25 y/o @ 30 weeks 4 days who presents to OB with the complaint of brown vaginal discharge. She denies loss of fluid, bright red bleeding, or cramping. She had a known placental abruption at 25 weeks and was admitted to [facility] then sent home on pelvic rest. 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 She is very tearful today and asks many times if the baby is ok. Maternal Data Information CATIE Calculator Estimated Delivery Date Method Current WG Current Estimate 01/13/22 Ultrasound #1 30w 4d Other Estimates 12/31/21 LMP (Certain) 32w 3d [facility] Medical History Abnormal glucose affecting Acute kidney injury Bipolar 1 disorder Hypertension Home Medications sertraline 1 tab PO DAILY 07/15/18 [History Last Taken Unknown] multivitamin no.47-iron fum 27 mg-folate no.1 1 mg-dha 300 mg capsule 1 cap PO DAILY 05/30/21 [History Last Taken Unknown] diphenhydramine 25 mg-acetaminophen 500 mg/15 mL oral solution ml PO 08/30/21 [History Last Taken 11/07/21] trazodone 50 mg tablet See Rx Instructions .ROUTE .COMPLEX #30 tab 10/05/21 [Rx Last Taken 11/07/21] Allergy/AdvReac Type Severity Reaction Status Date / Time morphine Allergy Hives Verified 11/08/21 19:42 Family History Other Breast cancer Cancer Heart disease Surgical History H/O chest tube placement History of appendectomy Social History adopted: No household members: family housing: house current occupational status: employed current occupation: [employer]- [employer] Cause[employer] pets and animals: Yes Smoking Status: Former smoker second hand exposure: Yes alcohol intake: current alcohol intake frequency: a few times a week substance use type: former substance user seatbelt use: always do you feel safe at home: Yes additional social history: - Edgar History 1 Elective abortions Hx Para Spontaneous abortions Hx # Term Pregnancies Ectopic pregnancies Hx # Pregnancies Multiple births # of living children Visit Details Expected Delivery Route/Plan Labor Preferences- CB/BF classes: [] labor support person: [] labor intervention preferences: [] pain management options preferred: [] cut cord/dad catch: [] : [] PP control planned: [] discussed possible routes of delivery and associated risks: [] special requests: [] Plans Covid status: naturally immune. counseled regarding risk of covid in vs vaccination and declined vaccination Flu vaccine: discussed Tdap vaccine: [] Rhogam: [] LARC form signed: [] Problem list reviewed and updated with the most current plan of care details and appropriate orders placed. Relevant counseling for the gestational age provided. Continue routine care and follow up unless otherwise noted in visit notes/problem list details OB Flowsheet Initial Weight: Not Recorded Date -?-?-?-?-?-?-?-?-?-?-?-?- EGA Weight BP Urine Prot -?-?-?-?-?-?-?-?-?-?-?-?- Glucose FHR FuHt Pres Dilation -?-?-?-?-?-?-?-?-?-?-?-?- Effaced St Visit Note 06/14/21 -?-?-?-?-?-?-?-?-?-?-?-?- 9w 4d 193 lb 8 oz 134/86 -?-?-?-?-?-?-?-?-?-?-?-?- 170 -?-?-?-?-?-?-?-?-?-?-?-?- SM- CRL 2.5cm NO T cons with LMP 07/19/21 -?-?-?-?-?-?-?-?-?-?-?-?- 14w 4d 194 lb 6 oz 118/78 Nega tive -?-?-?-?-?-?-?-?-?-?-?-?- Negative 140 -?-?-?-?-?-?-?-?-?-?-?-?- JV- no lof, vagi nal bleeding, or cramping. Plan for anatomy scan at at 20 weeks. 08/30/21 -?-?-?-?-?-?-?-?-?-?-?-?- 20w 4d 196 lb 120/80 Negative -?-?-?-?-?-?-?-?-?-?-?-?- Negative 145 -?-?-?-?-?-?-?-?-?-?-?-?- JV- no lof, vagi nal bleeding, or dec fm. no complaints. Pt is taking trazadone to sleep. discussed trying something different in the 3rd trimester 10/03/21 -?-?-?-?-?-?-?-?-?-?-?-?- 25w 4d 199 lb 141/75 137/66 116/61 90/50 111/59 Negative mg/dl (Nega tive) -?-?-?-?-?-?-?-?-?-?-?-?- -?-?-?-?-?-?-?-?-?-?-?-?- 10/09/21 -?-?-?-?-?-?-?-?-?-?-?-?- 26w 2d 199 lb 126/80 -?-?-?-?-?-?-?-?-?-?-?-?- 145 -?-?-?-?-?-?-?--?-?-?-?-?- SM- no further b leeding. SM- no further bleeding. hav ing some intermittent RUQ pain, upper abdominal. reviewed precautions. 10/19/21 -?-?-?-?-?-?-?-?-?-?-?-?- 27w 5d 202 lb 122/86 -?-?-?-?-?-?-?-?-?-?-?-?- 144 -?-?-?-?-?-?-?-?-?-?-?-?- JV- bedside ultr asound performed, + movement and breathing. Plan for pelvic rest, rpt steroids at 30 weeks. Nst's weekly starting 28 weeks deliver 37 weeks. JV- bedside ultrasound perfo rmed, + movement and breathing. Plan for pelvic rest, rpt steroids at 30 weeks. Nst's weekly starting 28 weeks deliver 37 weeks. Rpt cbc next week due to leukocytosis. 10/24/21 -?-?-?-?-?-?-?-?-?-?-?-?- 28w 3d 205 lb 4 oz 130/80 Nega tive -?-?-?-?-?-?-?-?-?-?-?-?- Negative 145 -?-?-?-?-?-?-?-?-?-?-?-?- JV- NST reactive today. 11/03/21 -?-?-?-?-?-?-?-?-?-?-?-?- 29w 6d 209 lb 110/78 Negative -?-?-?-?-?-?-?-?-?-?-?-?- Negative 140 -?-?-?-?-?-?-?-?-?-?-?-?- SM- no vb lof go od fm no regular ctx repeat us saturday11/07/21 -?-?-?-?-?-?-?-?-?-?-?-?- 30w 3d 207 lb 8 oz 120/78 -?-?-?-?-?-?-?-?-?-?-?-?- 145 -?-?-?-?-?-?-?-?-?-?-?-?- JV- no bleeding, pt is very tearful today and states that she wants to be with her Dad and feels nauseated. NST reactive. note to be off work today to be with family and rest. 11/08/21 -?-?-?-?-?-?-?-?-?-?-?-?- 30w 4d 207 lb 7.28 oz 126/68 -?-?-?-?-?-?-?-?-?-?-?-?- -?-?-?-?-?-?-?-?-?-?-?-?- OB TRIAGE VISIT ROS Constitutional Constitutional: Denies change in weight, chills, fatigue, fever(s), headache(s), poor appetite or weakness ENT HEENT: Denies dizziness, headache(s), loss taste/smell or sore throat Cardiovascular Cardiovascular: Denies chest pain, dizziness, dyspnea, irregular heart rhythm, leg edema, palpitations, rapid heart rate or vomiting Respiratory/Chest Respiratory/Chest: Denies chest tightness, cough, dyspnea or breast pain Gastrointestinal Gastrointestinal: Denies abdominal pain, constipation, cramping, diarrhea, hemorrhoids or vomiting Genitourinary Genitourinary: Denies dysuria, flank pain, genital lesions, genital pain, urinary frequency or urinary urgency Musculoskeletal Musculoskeletal: Denies back pain, difficulty walking, joint pain, limited range of motion, muscle cramps or numbness Psychiatric Psychiatric: Reports other Details: + anxiety and depression Physical Exam Const alert, oriented x3 and no apparent distress General Appearance: cooperative and comfortable Resp normal respiratory effort Cardio regular rate GI normal to inspection, nondistended, normoactive bowel sounds Palpation: soft Amniotic Fluid: other abdomen soft, bedside ultrasound shows JOE of 11cm. no signs of abruption within the placenta. pelvic exam: sterile spec - scant dark brown blood without red blood present. cx is closed. NST FHR Rate Baby A Baseline: 150 Variability:: Moderate Accelerations:: 15 x 15 Decelerations:: None NST Reactive:: Yes FHR Category:: Category I Uterine Activity:: no contractions or signs of irritability Assessment & Plan (1) Placental abruption: COMMENT: wkly office visit, wkly nst @ 28 wks, 2x wkly nst @ 30 wks, deliver @ 37 wks, suspect due to bleeding and drop in fibrinogen. transport to [facility]. covid negative (2) Leukocytosis: COMMENT: no overt symptoms of infection. repeat cbc PRN (3) Vaginal bleeding during : COMMENT: observation overnight., no contractions. bmz given 10/03. serial cbc fibrinogen, coags. CL 3.4cm, closed (4) Low-lying placenta in second trimester: COMMENT: not low lying at anatomy scan but now 1.4 cm on scan 10/03 (5) Abnormal glucose affecting : COMMENT: nl 3 hr GTT (6) Stress at home: COMMENT: father , ambien PRN (7) Obesity affecting : COMMENT: 1 tm gct ordered (8) H/O cannabis abuse: COMMENT: encouraged cessation. random tox. neg tox on admission 10/03 (9) Tobacco smoking affecting : COMMENT: pt is currently weaning herself (10) Supervision of high risk , antepartum: COMMENT: PRR CATIE: 12/31/21 Spouse: Edgar (11) : QUALIFIERS: Weeks of gestation: 30 weeks Qualified Code(s): Z3A.30 - 30 weeks gestation of COMMENT: nl anatomy, declined genetic and carrier, abnormal 1 hr glucose (12) COVID-19 affecting , antepartum: COMMENT: started baby ASA, growth US starting after 28 weeks (13) Bipolar 1 disorder: COMMENT: on Zoloft, weaning oxcarbazapine off. sees PCP, refer to psychiatry. vistaril prn and for sleep. (14) Hypertension: COMMENT: no meds. previously on Lisinopril. baseline meds ordered PLAN: after discussion with MFM information systems technician at [facility], recommendations are for patient to continue pelvic rest, give rescue steroids today and tomorrow and send home. -pt to follow up with me in office tomorrow -recommend no working for remainder of the .
[2021-11-08] MEDS: Betamethasone/Betamethasone 30 MG/5 ML Vial 12 MG IM (20:34)
--- NOTE | 2021-11-09 11:21 | CASEMGMT ---
Social Work Labor and Delivery Received message from nursing asking social science instructor to reach out to patient regarding resources and support, as patient is be placed off of work for remainder of . Patient is 30 weeks along. Called number on Demographic data and spoke to Edgar who reports to share a phone with patient. Left this investment underwriter's name and number and asked to have patient call when able. -TONY Jack, LETTER CARRIER
== END 2021-11-08 23:59 | disposition home or self-care (01) ==
LOC: WPOUT 19:38 → WP 19:39
PROVIDERS: Visit Provider Obstetrics & Gynecology
DX: O45.93 Premature separation of placenta, unspecified, third trimester (principal); F31.9 Bipolar disorder, unspecified; O99.891 Other specified diseases and conditions complicating pregnancy; N89.8 Other specified noninflammatory disorders of vagina; O99.343 Other mental disorders complicating pregnancy, third trimester; D72.829 Elevated white blood cell count, unspecified; O10.013 Pre-existing essential hypertension complicating pregnancy, third trimester; Z3A.30 30 weeks gestation of pregnancy; O44.53 Low lying placenta with hemorrhage, third trimester; Z87.891 Personal history of nicotine dependence
CPT/HCPCS: 59025; 59050; 76815; 96372; 99218; G0378; J0702

== ENCOUNTER 2021-11-09 19:40 | Outpatient (CLI) | payer OTHER, SELFPAY ==
--- NOTE | 2021-11-09 16:09 | US_ITS ---
STUDY: SECOND AND THIRD TRIMESTER OBSTETRICAL ULTRASOUND - LIMITED REASON FOR EXAM: Female, 25 years old. placental placement PRIOR ULTRASOUND: 2.04.16 TECHNIQUE: Transabdominal TECHNICAL QUALITY: Adequate. FINDINGS: There is a single intrauterine fetus. The fetus is in a cephalic presentation. There is demonstrated cardiac activity with a heart rate of 134 bpm. There is a normal amniotic fluid volume. The largest amniotic fluid pocket measures 5.3 cm. The amniotic fluid index (JOE) is 13.3 cm. The placenta is posterior in location and is not low lying. There are Grade 1 placental changes. The cervix measures cm in length: 3.9. Tip of the placenta is 47 mm from the internal cervical os. There are vessels adjacent to the placenta which are 23 mm from the internal cervical os. BIOMETRY: BPD: 71 mm: 28 weeks, 4 days HC: 281 mm: 30 weeks, 5 days AC: 267 mm: 30 weeks, 5 days FL: 57 mm: 29 weeks, 6 days CI: 70 FL/AC: 21 FL/BPD: 80 HC/AC: 1.05 age by current US: 30 weeks, 1 days. CATIE by current US: 5.25.22. Estimated weight: 1544 grams, +/- 232 grams, 25 %. age by prior US: 30 weeks, 1 days. CATIE by prior US: 5.25.22. Age by LMP: 30 weeks, 5 days. CATIE by LMP: 5.21.22. IMPRESSION: There is a single live intrauterine with a heart rate of 134 bpm. age by current US: 30 weeks, 1 days. CATIE by current US: 5.25.22. Estimated weight: 1544 grams, +/- 232 grams, 25 %. The cervix measures cm in length: 3.9. Tip of the placenta is 47 mm from the internal cervical os. There are vessels adjacent to the placenta which are 23 mm from the internal cervical os. Electronically Signed: Kaiser Alexandre MD at 21:24 EDT , STUDY: SECOND AND THIRD TRIMESTER OBSTETRICAL ULTRASOUND - LIMITED REASON FOR EXAM: Female, 25 years old. placental placement PRIOR ULTRASOUND: 10.03.21 TECHNIQUE: Transvaginal TECHNICAL QUALITY: Adequate. FINDINGS: There is a single intrauterine fetus. The fetus is in a cephalic presentation. There is demonstrated cardiac activity with a heart rate of 134 bpm. There is a normal amniotic fluid volume. The largest amniotic fluid pocket measures 5.3 cm. The amniotic fluid index (JOE) is 13.3 cm. The placenta is posterior in location and is not low lying. There are Grade 1 placental changes. The cervix measures cm in length: 3.9. Tip of the placenta is 47 mm from the internal cervical os. There are vessels adjacent to the placenta which are 23 mm from the internal cervical os. BIOMETRY: BPD: 71 mm: 28 weeks, 4 days HC: 281 mm: 30 weeks, 5 days AC: 267 mm: 30 weeks, 5 days FL: 57 mm: 29 weeks, 6 days CI: 70 FL/AC: 21 FL/BPD: 80 HC/AC: 1.05 age by current US: 30 weeks, 1 days. CATIE by current US: 5.25.22. Estimated weight: 1544 grams, +/- 232 grams, 25 %. age by prior US: 30 weeks, 1 days. CATIE by prior US: 5.25.22. Age by LMP: 30 weeks, 5 days. CATIE by LMP: 5.21.22. US/OB Limited With Biometrics
[2021-11-09 20:05] VITALS: BMI 37.9
[2021-11-09 20:20] VITALS: BP 126/71; TEMP 36.8
[2021-11-09] MEDS: Betamethasone/Betamethasone 30 MG/5 ML Vial 12 MG IM (20:32)
--- NOTE | 2021-11-09 20:35 | OB.TRI.PN_ITS ---
Progress Notes Date of Service: 11/09/21 Progress Note: Pt presents to L&D for repeat dose of steroids only. She complains of nausea and vomiting yesterday and states that she feels a little dehydrated. IV fluids were offered Assessment & Plan (1) Placental abruption: COMMENT: wkly office visit, wkly nst @ 28 wks, 2x wkly nst @ 30 wks, deliver @ 37 wks, suspect due to bleeding and drop in fibrinogen. transport to [facility]. covid negative rpt dose of steroids given at 30 weeks (2) Leukocytosis: COMMENT: no overt symptoms of infection. repeat cbc PRN (3) Vaginal bleeding during : COMMENT: observation overnight., no contractions. bmz given 10/03. serial cbc fibrinogen, coags. CL 3.4cm, closed (4) Low-lying placenta in second trimester: COMMENT: not low lying at anatomy scan but now 1.4 cm on scan 10/03 (5) Abnormal glucose affecting : COMMENT: nl 3 hr GTT (6) Stress at home: COMMENT: father , ambien PRN (7) Obesity affecting : COMMENT: 1 tm gct ordered (8) H/O cannabis abuse: COMMENT: encouraged cessation. random tox. neg tox on admission 10/03 (9) Tobacco smoking affecting : COMMENT: pt is currently weaning herself (10) Supervision of high risk , antepartum: COMMENT: PRR CATIE: 12/31/21 Spouse: Edgar (11) : QUALIFIERS: Weeks of gestation: 30 weeks Qualified Code(s): Z3A.30 - 30 weeks gestation of COMMENT: nl anatomy, declined genetic and carrier, abnormal 1 hr glucose
== END 2021-11-09 23:59 | disposition home or self-care (01) ==
LOC: WPOUT 20:01 → US 20:03 → WPOUT 20:04 → WP 20:04
PROVIDERS: Referring Provider Obstetrics & Gynecology; Visit Provider Obstetrics & Gynecology
DX: O45.93 Premature separation of placenta, unspecified, third trimester (principal); O44.53 Low lying placenta with hemorrhage, third trimester; O99.810 Abnormal glucose complicating pregnancy; O99.333 Smoking (tobacco) complicating pregnancy, third trimester; F17.200 Nicotine dependence, unspecified, uncomplicated; O99.213 Obesity complicating pregnancy, third trimester; D72.829 Elevated white blood cell count, unspecified; Z3A.30 30 weeks gestation of pregnancy
CPT/HCPCS: 76816; 76817; J0702

== ENCOUNTER 2021-11-09 19:40 | Outpatient (CLI) | payer OTHER, SELFPAY | END 2021-11-09 23:59 | disposition home or self-care (01) | LOC: WPOUT 19:51 | PROVIDERS: Visit Provider Obstetrics & Gynecology | DX: O45.90 Premature separation of placenta, unspecified, unspecified trimester (principal); Z3A.00 Weeks of gestation of pregnancy not specified | CPT/HCPCS: 96372; 99218; G0378 ==

== ENCOUNTER 2021-11-13 09:14 | Outpatient (CLI) | payer OTHER, SELFPAY | END 2021-11-13 23:59 | disposition home or self-care (01) | LOC: LABSPEC 11-14 09:14 | PROVIDERS: Visit Provider Nurse Practitioner Women's Health | DX: O23.40 Unspecified infection of urinary tract in pregnancy, unspecified trimester (principal) | CPT/HCPCS: 87086; 87088 ==

== ENCOUNTER 2021-11-23 00:41 | Inpatient (IN) | payer OTHER, SELFPAY ==
[2021-11-23] VITALS (19 sets, daily range): BP systolic 106–144; BP diastolic 52–84; PULSE 72–111; RESP 14–24; TEMP 36.1–36.9; O2SAT 95–100; BMI 37.4
[2021-11-23] MEDS: 0.9% Saline Lock 10 ML Syringe IV ×3 (00:55→13:16)
--- NOTE | 2021-11-23 01:02 | HP.PCM.OB_ITS ---
HPI - General General Date of Admission: 11/23/21 HPI Narrative LYNNE SAL, is a 25 y/o @ 32 weeks 5 days who presents with a large amount of vaginal bleeding and clots. She has a known chronic placental abruption and has had 2 full courses of steroids. Maternal Data Information CATIE Calculator Estimated Delivery Date Method Current WG Current Estimate 01/13/22 Ultrasound #1 32w 5d Other Estimates 12/31/21 LMP (Certain) 34w 4d PFSH PFS Medical History (Updated 11/21/21 @ 07:[address] Cyndy Sweeney MD) Abnormal glucose affecting Acute kidney injury Bipolar 1 disorder Hypertension Home Medications sertraline 1 tab PO DAILY 07/15/18 [History Last Taken Unknown] multivitamin no.47-iron fum 27 mg-folate no.1 1 mg-dha 300 mg capsule 1 cap PO DAILY 05/30/21 [History Last Taken Unknown] diphenhydramine 25 mg-acetaminophen 500 mg/15 mL oral solution ml PO 08/30/21 [History Last Taken 11/07/21] trazodone 50 mg tablet See Rx Instructions .ROUTE .COMPLEX #30 tab 10/05/21 [Rx Last Taken 11/07/21] Allergy/AdvReac Type Severity Reaction Status Date / Time morphine Allergy Mild Hives Verified 11/20/21 08:26 Family History Other Breast cancer Cancer Heart disease Surgical History H/O chest tube placement History of appendectomy Social History adopted: No household members: family housing: house current occupational status: employed current occupation: [employer]- [employer] Cause[employer] pets and animals: Yes Smoking Status: Former smoker second hand exposure: Yes alcohol intake: current alcohol intake frequency: a few times a week substance use type: former substance user seatbelt use: always do you feel safe at home: Yes additional social history: - Edgar History 1 Elective abortions Hx Para Spontaneous abortions Hx # Term Pregnancies Ectopic pregnancies Hx # Pregnancies Multiple births # of living children Visit Details Expected Delivery Route/Plan Labor Preferences- CB/BF classes: [] labor support person: [] labor intervention preferences: [] pain management options preferred: [] cut cord/dad catch: [] : [] PP control planned: [] discussed possible routes of delivery and associated risks: [] special requests: [] Plans Covid status: naturally immune. counseled regarding risk of covid in vs vaccination and declined vaccination Flu vaccine: discussed Tdap vaccine: [] Rhogam: [] LARC form signed: [] Problem list reviewed and updated with the most current plan of care details and appropriate orders placed. Relevant counseling for the gestational age provided. Continue routine care and follow up unless otherwise noted in visit notes/problem list details OB Flowsheet Initial Weight: Not Recorded Date -?-?-?-?-?-?-?-?-?-?-?-?- EGA Weight BP Urine Prot -?-?-?-?-?-?-?-?-?-?-?-?- Glucose FHR FuHt Pres Dilation -?-?-?-?-?-?-?-?-?-?-?-?- Effaced St Visit Note 06/14/21 -?-?-?-?-?-?-?-?-?-?-?-?- 9w 4d 193 lb 8 oz 134/86 -?-?-?-?-?-?-?-?-?-?-?-?- 170 -?-?-?-?-?-?-?-?-?-?-?-?- SM- CRL 2.5cm NO T cons with LMP 07/19/21 -?-?-?-?-?-?-?-?-?-?-?-?- 14w 4d 194 lb 6 oz 118/78 Nega tive -?-?-?-?-?-?-?-?-?-?-?-?- Negative 140 -?-?-?-?-?-?-?-?-?-?-?-?- JV- no lof, vagi nal bleeding, or cramping. Plan for anatomy scan at at 20 weeks. 08/30/21 -?-?-?-?-?-?-?-?-?-?-?-?- 20w 4d 196 lb 120/80 Negative -?-?-?-?-?-?-?-?-?-?-?-?- Negative 145 -?-?-?-?-?-?-?-?-?-?-?-?- JV- no lof, vagi nal bleeding, or dec fm. no complaints. Pt is taking trazadone to sleep. discussed trying something different in the 3rd trimester 10/03/21 -?-?-?-?-?-?-?-?-?-?-?-?- 25w 4d 199 lb 141/75 137/66 116/61 90/50 111/59 Negative mg/dl (Nega tive) -?-?-?-?-?-?-?-?-?-?-?-?- -?-?-?-?-?-?-?-?-?-?-?-?- 10/09/21 -?-?-?-?-?-?-?-?-?-?-?-?- 26w 2d 199 lb 126/80 -?-?-?-?-?-?-?-?-?-?-?--?- 145 -?-?-?-?-?-?-?-?-?-?-?-?- SM- no further b leeding. SM- no further bleeding. hav ing some intermittent RUQ pain, upper abdominal. reviewed precautions. 10/19/21 -?-?-?-?-?-?-?-?-?-?-?-?- 27w 5d 202 lb 122/86 -?-?-?-?-?-?-?-?-?-?-?-?- 144 -?-?-?-?-?-?-?-?-?-?-?-?- JV- bedside ultr asound performed, + movement and breathing. Plan for pelvic rest, rpt steroids at 30 weeks. Nst's weekly starting 28 weeks deliver 37 weeks. JV- bedside ultrasound perfo rmed, + movement and breathing. Plan for pelvic rest, rpt steroids at 30 weeks. Nst's weekly starting 28 weeks deliver 37 weeks. Rpt cbc next week due to leukocytosis. 10/24/21 -?-?-?-?-?-?-?-?-?-?-?-?- 28w 3d 205 lb 4 oz 130/80 Nega tive -?-?-?-?-?-?-?-?-?-?-?-?- Negative 145 -?-?-?-?-?-?-?-?-?-?-?-?- JV- NST reactive today. 11/03/21 -?-?-?-?-?-?-?-?-?-?-?-?- 29w 6d 209 lb 110/78 Negative -?-?-?-?-?-?-?-?-?-?-?-?- Negative 140 -?-?-?-?-?-?-?-?-?-?-?-?- SM- no vb lof go od fm no regular ctx repeat us saturday11/07/21 -?-?-?-?-?-?-?-?-?-?-?-?- 30w 3d 207 lb 8 oz 120/78 -?-?-?-?-?-?-?-?-?-?-?-?- 145 -?-?-?-?-?-?-?-?-?-?-?-?- JV- no bleeding, pt is very tearful today and states that she wants to be with her Dad and feels nauseated. NST reactive. note to be off work today to be with family and rest. 11/08/21 -?-?-?-?-?-?-?-?-?-?-?-?- 30w 4d 207 lb 7.28 oz 126/68 -?-?-?-?-?-?-?-?-?-?-?-?- -?-?-?-?-?-?-?-?-?-?-?-?- OB TRIAGE VISIT 11/09/21 -?-?-?-?-?-?-?-?-?-?-?-?- 30w 5d 205 lb 120/84 -?-?-?-?-?-?-?-?-?-?-?-?- 140 -?-?-?-?-?-?-?-?-?-?-?-?- SM- no vb log go od fm no regular ctx. 11/13/21 -?-?-?-?-?-?-?-?-?-?-?-?- 31w 2d 207 lb 8 oz 138/78 -?-?-?-?-?-?-?-?-?-?-?-?- 144 -?-?-?-?-?-?-?-?-?-?-?-?- MH-NST only reac tive 11/16/21 -?-?-?-?-?-?-?-?-?-?-?-?- 31w 5d 207 lb 8 oz 136/82 Nega tive -?-?-?-?-?-?-?-?-?-?-?-?- Negative 140 -?-?-?-?-?-?-?-?-?-?-?-?- SM- discussed [facility] today, PL updated, will plan 2x weekly nsts due to nl placenta but history of bleeding and suspected abruption, h/o htn no meds. plan delivery 37 weeks. 11/20/21 -?-?-?-?-?-?-?-?-?-?-?-?- 32w 2d 211 lb 129/82 Negative -?-?-?-?-?-?-?-?-?-?-?-?- Negative 140 -?-?-?-?-?-?-?-?-?-?-?-?- SM- discussed [facility] further plan once weekly joe/nst and deliver at 37. if develops further bleeding then increase testing 11/23/21 -?-?-?-?-?-?-?-?-?-?-?-?- 32w 5d 141/84 -?-?-?-?-?-?-?-?-?-?-?-?- -?-?-?-?-?-?-?-?-?-?-?-?- ROS Constitutional Constitutional: Denies change in weight, fatigue, fever(s), headache(s), poor appetite or weakness Eyes Eyes: Denies blurry vision, change in vision, seeing flashes or spots in vision ENT HEENT: Denies dizziness, headache(s), loss taste/smell or sore throat Cardiovascular Cardiovascular: Denies chest pain, dizziness, dyspnea, irregular heart rhythm, leg edema, palpitations, rapid heart rate or vomiting Respiratory/Chest Respiratory/Chest: Denies chest tightness, cough, dyspnea or breast pain Gastrointestinal Gastrointestinal: Denies abdominal pain, anorexia, constipation, cramping, diarrhea, hemorrhoids, vomiting or weight changes Genitourinary Genitourinary: Denies dysuria, flank pain, genital lesions, genital pain, urinary frequency or urinary urgency Musculoskeletal Musculoskeletal: Denies back pain, difficulty walking, joint pain, limited range of motion, muscle cramps or numbness Integumentary Integumentary: Denies lesions or unusual bruising Neurologic Neurologic: Denies abnormal movements, abnormal speech, dizziness, numbness, seizure-like activity or syncope Psychiatric Psychiatric: Denies anxiety, behavioral changes, change in appetite, change in libido, cognitive impairment, confusion, depression, difficulty concentrating, hallucinations or suicidal thoughts Endocrine Endocrinology: Denies excessive sweating, polydipsia or polyuria Hematologic/Lymphatic Hematologic/Lymphatic: Denies easy bleeding, easy bruising or lymphadenopathy Allergic/Immunologic Allergic/Immunologic: Denies itchy eyes, lip swelling, seasonal rhinorrhea, rhinitis, throat swelling, tongue swelling, eczemia, wheezing or asthma Vital Signs Vital Signs Vital Signs: 11/23/21 00:44 Temperature 97.6 F L Temperature Source Temporal Pulse Rate 106 H Blood Pressure 141/84 H BP Systolic 141 BP Diastolic 84 Pulse Ox 100 Physical Exam Const alert, oriented x3, no apparent distress and healthy appearing General Appearance: cooperative; Negative for anxious HEENT normocephalic Face and Sinus: normal facial exam Eyes EOMs intact bilaterally and no scleral icterus General Eye: normal appearance of both eyes Neck full ROM and supple Lymph Lymphatic: no lymphadenopathy noted Chest Chest: abnormal inspection of the chest Resp normal respiratory effort Effort and Inspection: able to speak in complete sentences Cardio regular rate GI soft to palpation and non-tender Inspection: gravid Palpation: soft; Negative for tender external exam normal Amniotic Fluid: other large amount of blood on exam with clots Back/Spine no CVA tenderness Extremity normal to inspection, full ROM and no clubbing, cyanosis or edema General Extremity: Negative for calf tenderness or edema Skin Lesions: no lesions Rashes: no rashes Psych mental status grossly normal Labs Labs Labs: Blood Type O POSITIVE Antibody Screen NEGATIVE Hct 36.7 % (37-47) L Hgb 12.1 g/dL (12.0-15.0) Obstetrics US Syphilis Total Ab Non-reactive Rubella IgG Antibody Reactive (Nonreactive) Hep Bs Antigen Non-Reactive (Nonreactive) Chlamydia DNA (ZOEY) Negative (Negative) Neisseria gonorrhoeae DNA (ZOEY) Negative (Negative) HIV 1&2 Antibody Non-Reactive (Nonreactive) Glucose 1 Hr 50 gm 149 mg/dL (70-140) H Assessment & Plan (1) Placental abruption: COMMENT: fu MFM consult 11/16, stable and normal vessesl, placenta moved away- recommend weekly JOE/NST and delivery at 37 if still having bleeding. placenta 4 cm away from cervix no abnormal low lying vessels seen (2) Abnormal glucose affecting : COMMENT: nl 3 hr GTT (3) Stress at home: COMMENT: father , ambien PRN (4) Obesity affecting : COMMENT: 1 tm gct ordered (5) H/O cannabis abuse: COMMENT: encouraged cessation. random tox. neg tox on admission 10/03 (6) Tobacco smoking affecting : COMMENT: pt is currently weaning herself (7) Supervision of high risk , antepartum: COMMENT: PRR CATIE: 12/31/21 Spouse: Edgar (8) : QUALIFIERS: Weeks of gestation: 30 weeks Qualified Code(s): Z3A.30 - 30 weeks gestation of COMMENT: nl anatomy, declined genetic and carrier, abnormal 1 hr glucose (9) COVID-19 affecting , antepartum: COMMENT: started baby ASA, growth US starting after 28 weeks PLAN: emergent section now.
[2021-11-23] MEDS: Cefazolin 2 GM in 0.9% Normal Saline 100 ML IV (01:20)
--- NOTE | 2021-11-23 01:33 | OP.PCM_ITS ---
Assessment & Plan (1) Placental abruption: COMMENT: fu MFM consult 11/16, stable and normal vessesl, placenta moved away- recommend weekly JOE/NST and delivery at 37 if still having bleeding. placenta 4 cm away from cervix no abnormal low lying vessels seen (2) Abnormal glucose affecting : COMMENT: nl 3 hr GTT (3) Stress at home: COMMENT: father , ambien PRN (4) Obesity affecting : COMMENT: 1 tm gct ordered (5) H/O cannabis abuse: COMMENT: encouraged cessation. random tox. neg tox on admission 10/03 (6) Tobacco smoking affecting : COMMENT: pt is currently weaning herself (7) Supervision of high risk , antepartum: COMMENT: PRR CATIE: 12/31/21 Spouse: Edgar (8) : QUALIFIERS: Weeks of gestation: 30 weeks Qualified Code(s): Z3A.30 - 30 weeks gestation of COMMENT: nl anatomy, declined genetic and carrier, abnormal 1 hr glucose (9) COVID-19 affecting , antepartum: COMMENT: started baby ASA, growth US starting after 28 weeks (10) Bipolar 1 disorder: COMMENT: on Zoloft, weaning oxcarbazapine off. sees PCP, refer to psychiatry. vistaril prn and for sleep. 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 Covington catheter was placed. The patient was placed in the dorsal supine position with leftward tilt. Patient was prepped and draped in the normal sterile fashion. Pfannenstiel skin incision was made with the scalpel and carried through to the underlying layer of fascia with the scalpel. Fascia was nicked in the midline and the incision extended laterally. The peritoneum was entered digitally. The incision was stretched and a low transverse uterine incision was made with the scalpel. The 's head was delivered atraumatically followed by the anterior and posterior shoulders without complication the rest of the delivered. The cord was clamped and cut and the infant was handed off to awaiting nurse. The placenta was delivered spontaneously immediately following and was noted to be intact and have a three-vessel cord. The uterus was exteriorized cleared of all clots and debris, and the incision was closed in a double layer closure using #1 Vicryl and #1 Monocryl. The ovaries and fallopian tubes were noted to be within normal limits. The uterus was returned to the maternal abdomen and gutters were cleared of all clots and debris. The peritoneum was closed with 3-0 Monocryl in a running fashion. Fascia was closed with 0 PDS in a running fashion. Subcutaneous tissue was closed with 3-0 Monocryl in a subcuticular fashion. The skin was closed with a 4-0 monocryl. Mepilex dressing was applied without complication. Patient was taken to recovery in stable condition. It was discussed with the patient that based on the clinical information obtained during this encounter, combined with her history, at this time I would recommend either or repeat section for future deliveries if further pregnancies are desired. Presentation: Positive for Vertex Amniotic Membrane Rupture Type: Artificial Amniotic Fluid Description: Bloody Placental Delivery Description: Manual Removal Placenta Disposition: Sent to Pathology Cord Vessel Description: 3 Vessels Cord Entanglement: None Cord Gases: ABG and VBG A Gender: Female (1 minute): 7 (5 minute): 8 Delayed Cord Clamping: No Complications Risks of Surgery Discussed w/Patient: Bleeding, Anesthesia Risks, Infection and Need for Future C-Sections Complications: no complications Multi Select Codes Urinary/Genital Urinary/Genital CPT Codes: 54312 Delivery [facility]
[2021-11-23 01:43] LABS: Absolute Lymphocyte Count 3.66 X10^3/uL (0.83-4.51); Absolute Neutrophil Count 14.7 X10^3/uL (2.0-7.7); Basophil# 0.03 X10^3/uL; Basophil% 0.1 % (0-1); Eosinophil# 0.07 X10^3/uL; Eosinophils% 0.3 % (0-5); Hematocrit 32.4 % (37-47); Hemoglobin 10.8 g/dL (12.0-15.0); Lymphocyte # 3.66 X10^3/ul (0.83-4.51); Lymphocyte % 18.1 % (19-41); Mean Corp Hgb Conc 33.3 g/dL (32-36); Mean Corpuscular Hgb 30.5 pg (27.0-32.0); Mean Corpuscular Volume 91.5 fL (81-99); Mean Platelet Vol. 10.3 fl (6.2-12.0); Monocyte# 1.53 X10^3/uL; Monocyte% 7.6 % (0-10); NRBC Flagged by Analyzer 0 % (0-5); Neutrophil # 14.73 X10^3/uL (2.7-7.7); Neutrophil % 73.1 % (47-70); POSITIVE DIFFERENTIAL YES; Platelet Count 242 K/mm3 (150-450); RBC Distribution Width CV 12.3 % (11.6-14.6); RBC Distribution Width SD 40.8 fl (35.1-43.9); Red Blood Count 3.54 M/mm3 (4.2-5.4); White Blood Count 20.2 K/mm3 (4.4-11.0)
[2021-11-23 01:54] LABS: International Normalized Ratio 1.1; Partial Thromboplast Time 26.3 Seconds (24.1-36.2); Prothrombin Time (Protime)PT. 13.3 SECONDS (11.7-14.9)
[2021-11-23 01:55] LABS: Differential Indicated SCAN CRITERIA MET
[2021-11-23 01:59] LABS: Fibrinogen 570 mg/dl (203-444)
[2021-11-23] MEDS: HYDROmorphone 1 MG/ML Syringe IV ×4 (02:00→13:27)
[2021-11-23 02:02] LABS: Differential Comment SCANNED
[2021-11-23 02:03] LABS: ALB/GLOB Ratio 0.8 RATIO (0.9-2.4); AST(SGOT) 10 U/L (15-37); Alanine Aminotransfer ALT/SGPT 12 U/L (13-56); Albumin, Serum 2.5 g/dL (3.2-5.0); Alkaline Phosphatase 103 U/L (45-117); Anion Gap 8 (5-15); BUN 9 mg/dL (7-18); BUN/Creat Ratio 13.9 RATIO (10-20); Calcium,Total 8.5 mg/dL (8.5-10.1); Chloride 109 mmol/L (98-107); Creatinine, Serum 0.65 mg/dL (0.55-1.02); EST Glomerular Filtration Rate 116 mL/min (>60); Est Glom Filt Rate - Afr Amer 140 mL/min (>60); Globulin 3.3 g/dL (2.2-4.2); Glucose 131 mg/dL (74-106); Potassium 3.9 mmol/L (3.5-5.1); Protein, Total 5.8 g/dL (6.4-8.2); Sodium Level 138 mmol/L (136-145)
[2021-11-23] MEDS: Oxytocin 30 units/NS 500 ml 30 UNITS/500 ML IV.SOLN 167 UNITS IV (02:10)
[2021-11-23] MEDS: Acetaminophen 500 MG Tablet 1000 MG PO ×4 (02:42→20:00)
[2021-11-23] MEDS: Ketorolac 30 MG/ML Syringe IV ×3 (02:42→14:01)
--- NOTE | 2021-11-23 04:45 | NURSING ---
pt educated on pumping at this time, RN assisted pt with pumping
[2021-11-23] MEDS: Lactated Ringers 1,000 ML 100 ML IV (05:18)
--- NOTE | 2021-11-23 06:20 | NURSING ---
pt taken to SCN to see infant at this time, pt tolerated well
--- NOTE | 2021-11-23 07:25 | NURSING ---
report given to Apolinar Quinteros RN who is assuming care of pt at this time, pt remains in SCN skin to skin with , tolerating well, wishes to remain in SCN
--- NOTE | 2021-11-23 09:02 | NURSING ---
0845 meds given bob [employer] student under supervision of Jeremiah RN clinical instructor
[2021-11-23] MEDS: Senna/Docusate Sodium 1 Tablet PO (10:19)
[2021-11-23] MEDS: Enoxaparin 40 MG/0.4 ML Syringe SC (13:15)
[2021-11-23 13:58] LABS: Pathologist Review Reviewed
--- NOTE | 2021-11-23 16:00 | CASEMGMT ---
Social Work Labor and Delivery Unit Consult received due to maternal history of Bipolar disorder and baby admitted to [facility], with possibility of transfer on to [facility]. Chart reviewed. Spoke with nursing in the [facility] and learned baby was transferred to [facility]. Presented to patient's room and found trying to sleep and patient's sister present. Introduced self to the patient and reason for visit. Acknowledge that patient has had a lot going on in a short amount of time. offered to meet with patient now or tomorrow morning of patient preferred to rest now. Patient chose for case management social worker to come back in the morning. Plan: See patient on 11.24.2021 for assessment. Planning between [id number] as time allows. -TONY Jack, RADAR OPERATOR
[2021-11-23] MEDS: oxyCODONE 5 MG Tablet PO ×2 (16:34→21:27)
[2021-11-23] MEDS: Ibuprofen 600 MG Tablet PO (20:01)
[2021-11-24] MEDS: Ibuprofen 600 MG Tablet PO ×2 (02:23→08:39)
[2021-11-24] MEDS: Acetaminophen 500 MG Tablet 1000 MG PO ×2 (02:23→08:38)
[2021-11-24 02:28] VITALS: BP 129/69; PULSE 75; RESP 18; TEMP 36.1
[2021-11-24] MEDS: Enoxaparin 40 MG/0.4 ML Syringe SC (05:28)
[2021-11-24 05:45] LABS: Hematocrit 32.6 % (37-47); Hemoglobin 10.8 g/dL (12.0-15.0); Mean Corp Hgb Conc 33.1 g/dL (32-36); Mean Corpuscular Hgb 30.3 pg (27.0-32.0); Mean Corpuscular Volume 91.6 fL (81-99); Mean Platelet Vol. 10.3 fl (6.2-12.0); Platelet Count 206 K/mm3 (150-450); RBC Distribution Width CV 12.3 % (11.6-14.6); RBC Distribution Width SD 41.1 fl (35.1-43.9); Red Blood Count 3.56 M/mm3 (4.2-5.4); White Blood Count 13.6 K/mm3 (4.4-11.0)
[2021-11-24] MEDS: oxyCODONE 5 MG Tablet PO (06:02)
--- NOTE | 2021-11-24 07:45 | PCM.PN.OB ---
Subjective Subjective Patient doing well without complaints. Tolerating PO. Ambulating and voiding without difficulty. Denies chest pain, shortness of breath, calf pain/swelling, fevers, chills, lightheadedness. Objective Data Objective Data Vital Signs: Vital Signs Temp Pulse Resp BP Pulse Ox 97 F L 75 18 129/69 H 98 11/24/21 02:28 11/24/21 02:28 11/24/21 02:28 11/24/21 02:28 11/23/21 16:30 Oxygen Delivery Method Room Air Weight: 211 lb 6.4 oz Body Mass Index (BMI) 37.4 Intake & Output: Intake and Output for Last 24 Hours 11/22/21 11/23/21 11/24/21 23:59 23:59 23:59 Intake Total 2098.33 / 2098.33 Output Total 4200 / 4200 Balance -2101.67 / -2101.67 Lab / Micro Data Result Diagrams: 11/24/21 05:33 11/23/21 01:20 Labs: Laboratory Results - last 24 hr 11/23/21 01:20: Diff Path Review Reviewed 11/24/21 05:33: WBC 13.6 H, RBC 3.56 L, Hgb 10.8 L, Hct 32.6 L, MCV 91.6, MCH 30.3, MCHC 33.1, RDW Std Deviation 41.1, RDW Coeff of Kendall 12.3, Plt Count 206, MPV 10.3 Micro: Microbiology 11/23/21 04:15 Nasal Secretion SARS-CoV-2 Antigen (Rapid) - Final ROS Constitutional Constitutional: Reports systems reviewed and no addt'l complaints, except as documented Cardiovascular Cardiovascular: Reports systems reviewed and no addt'l complaints, except as documented Respiratory/Chest Respiratory/Chest: Reports systems reviewed and no addt'l complaints, except as documented Gastrointestinal Gastrointestinal: Reports systems reviewed and no addt'l complaints, except as documented Physical Exam Const alert, oriented x3 and no apparent distress HEENT Head and Scalp: atraumatic Resp normal respiratory effort GI soft to palpation and non-tender Inspection: incision intact, healing well and drainage (none) Bimanual Exam - Vag & Uterus: uterus non-tender Uterus Palpation: uterus fundus firm (below Umbilicus) Assessment & Plan (1) Placental abruption: COMMENT: faith MFM consult 11/16, stable and normal vessesl, placenta moved away- recommend weekly JOE/NST and delivery at 37 if still having bleeding. placenta 4 cm away from cervix no abnormal low lying vessels seen (2) delivery delivered: COMMENT: LTCS 32 abruption JV girl PLAN: s/p LTCS PPD # 1 1. routine post care 2. pumping 3. rh positive 4. rubella immune dc home to be able to be with baby in NICU
--- NOTE | 2021-11-24 07:47 | PCM.DC ---
Discharge Instructions Diet Discharge Diet: No restrictions Activity Discharge Activity: May Not Drive (for 2 weeks or while taking narcotic pain medications.), May Shower and May Take a Tub Bath (in 7 days) May shower in (days): 0 May resume sexual activity in: 4-6 weeks Weight Bearing Status: Full weight bearing Lifting Restrictions: 20 pounds Dressing / Incision Call your doctor if your incision/area has: Continuous Slow Oozing, Sudden Increased Bleeding, Increased Pain/ Swelling, Increased Redness and Foul Smelling Discharge Call your doctor if you observe: Fever of 101 or Higher and Using more than 1 pad per hour (for 2 hours) Suture Line Care: Avoid Pulling/Pushing and Avoid Pinching/Bending Cleanse incision/area with: Soap & Water and Keep Dressing Clean & Dry Follow Up Care Please Follow Up With: Cyndy Sweeney MD When: Call [phone] to make an appointment for an incision check in 1-2 weeks. Test Results: Test results from this visit will be discussed in further detail at your follow-up appointment, if applicable. Discharge Plan Admission Admit Date/Time: 11/23/21 00:41 Attending Provider: Martha Shahid Primary Care Provider: Care Physician,Halina Primary Discharge Orders/Prescriptions Prescriptions: New oxycodone-acetaminophen [Percocet] 5-325 mg tablet 1 tab PO Q6H PRN (Reason: pain) 7 Days Qty: 20 RF: 0 naproxen 250 MG tablet 250 - 500 mg PO Q8H PRN PRN (Reason: MILD PAIN) Qty: 30 RF: 1 Continued PNV-DHA 27 mg iron-1 mg -300 mg capsule 1 cap PO DAILY RF: 0 diphenhydramine-acetaminophen 25-500 mg-mg/mL solution PO RF: 0 sertraline 100 MG tablet 1 tab PO DAILY RF: 0 trazodone 50 mg tablet See Rx Instructions .ROUTE .COMPLEX Qty: 30 RF: 2 Referrals / Follow Up: Care Physician,No Primary [Primary Care Provider] - Disposition Disposition (needs filled in before D/C Order can be placed): Home, Self Care
[2021-11-24] MEDS: Senna/Docusate Sodium 1 Tablet PO (08:39)
[2021-11-24 08:49] VITALS: BP 124/5; PULSE 84; RESP 16; TEMP 36.3
--- NOTE | 2021-11-24 09:55 | CASEMGMT ---
Social Work Assessment Labor and Delivery Unit Patient Address: [address], [place] [address] Phone number: [phone] Date of Referral: 11/23/2021 Time of Referral: [phone] Referred By: Dr. Ceja Date of Intervention: 11/24/2021 Time of Intervention: Approximately [id number] Reason for Referral: Maternal mental health History obtained from: Medical records and mother of baby (BENITA) [place] Household composition: MOB and father of baby (FOB). No reported concerns with housing situation. Patient's parent/guardian status: BENITA is a 25-year-old female, to the FOB Edgar Lundberg (date of 05/10/1998) for the last 2 years. BENITA denies any type of domestic violence, control or intimidation in this relationship. [place] baby is the first child for both. [place] baby girl is to be named Aishwarya Lundberg, born 11/23/2023. Medical History: BENITA is 1, para 0 now 1 after delivering a baby girl Aihswarya. care started at 9 weeks gestation. Per medical record concern for chronic placental abruption. Delivery occurred at 32 weeks gestation. weight 4 pounds 4 ounces. Apgars 7 and 8 at 1 and 5 minutes of life respectively. Inf[facility] transferred [facility] the [facility] for respiratory distress, and then onto main campus at [facility]. Educational Status: BENITA has high school diploma and attended trade school in medical assisting. Denies issues with reading, writing, or learning. 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 FOB works as an circus trainer as a [employer]. BENITA does express concern regarding finances due to being on bedrest, and uncertain about benefits for maternity leave.. Supplies: MOB reports to have all necessary supplies for the , reporting to have a great trip family and had a great baby shower. Reports to have a bassinet, crib, car seat and other necessary supplies to care for the baby. MOB does plan to provide breastmilk. Childcare/Caregiver(s): MOB and FOB. Transportation: No reported issues, and MOB reports to drive. Programs/Agencies Involved: No current agency involvement. MOB reports desire to apply for WIC. Verbally agrees to help me grow referral. Declines interest in applying for Medicaid or food assistance through job and family. Behavioral Health Issues: Mental Health History: MOB reports history of bipolar disorder since about the age of 13. Also history of depression. Denies any history of suicidal ideations or homicidal ideations, intent or attempts. MOB reports prepregnancy was prescribed Zoloft and Trileptal. Has not been on the Trileptal during and reports to this technical proposal writer that may remain off of the Trileptal as feels better off of this medication, reporting to feel more like myself. MOB reports to feel happy right now. Chart indicates MOB did take Zoloft and trazodone during this . This technical proposal writer noted a comment in the care record that MOB just wanted to be with her dad, and explored this, and as to whether there is any type of intent of wanting to as the MOB father did during this . MOB denies any type of suicide intent or ideation. Substance Use History: record indicates alcohol intake frequency a few times a week. MOB denies any alcohol usage during . Record indicates the MOB used marijuana during . MOB reported to this technical proposal writer marijuana use prior to on a recreational basis such as when at a alliance party but not chronic or daily. MOB reported use of marijuana 1 time during this around the time the MOB father was sick. MOB reports use during made the MOB sick she did not like it. Denies intends to start using the substance again. Denies history of other illicit substance use. Is a former tobacco smoker. Family History: Not discussed Drug Screens: Maternal drug screen negative on 10/03/2021 at 27 weeks gestation. Family/Social Stressors: Premature delivery at 32.5 weeks gestation with baby A being transferred up to the NICU at [facility]. Limited ability to work for the last month or so due to concern for chronic placental abruption. MOB endorses that finances are something she has been thinking about. MOB's father about 4 months ago, during this , and MOB identified that her father was her best friend. Support Systems: MOB reports good support from FOB, MOB mom and sisters. These individuals provide both practical and emotional support. Additional support from the MOB alevism family. Depression/Shaken Baby/Safe Sleeping: Reviewed safe sleeping and shaken baby prevention. Written material also provided. Reviewed mood and anxiety disorders including risk for psychosis with history of bipolar disorder. Educated that fathers are also at risk for depression and anxiety. ASSESSMENT: Met with MOB in room. MOB alone. Cooperative with speaking to social work manager. MOB reports to have necessary supplies in place to take care of the baby and to have an adequate support from family. MOB reports she is looking forward to discharge today, to go see the baby. MOB reported to feel that the baby needs me. MOB reports has done some research on depression, reporting that uncertain when could hit but right now reports to feel happy. Discussed the idea of distress and that should symptoms arise or exacerbate, and MOB start feeling distress it is important to seek out help and support. Gently reviewed that with history of bipolar disorder sometimes manic episodes or psychosis can occur in the timeframe, and especially important to seek out help and support. Reinforced that any type of emotional change with mothers needs to be supported, and does not reflect on being a good parent and that the parent has done nothing wrong. At this point MOB plans to stay on antidepressant, but is hesitant to return back to mood stabilizer. MOB reports to have a primary care doctor who can prescribe medications in the community. MOB reports she is not interested in counseling at this time and does not really like to talk to people, but rather deal with things internally herself. Addressed possible grief and support for this. MOB acknowledges this has been something discussed between her mother and sisters, but MOB prefers to deal with things internally. MOB reports her coping is to pretend her father is in her head and have a conversation with him, will go driving and talk to her dad while driving. MOB does agree to help me grow referral and is interested in WIC. MOB declines any interest in services through job and family services. Let MOB know there will be a social work manager at that [facility] to continue providing support and assistance as needed. Safe Plan of Care for related to substance use: MOB reports intent to continue abstaining from marijuana. Explored what would happen if this intention changes moving forward. MOB reports use would only be something if the MOB and FOB were away for the weekend, and the baby was not around. But again reports intent to abstain. Reviewed the importance of not using any marijuana while breast-feeding. PLAN: MOB will discharge later today when the FOB arrives. Will return back to MOB's room and provide resources for home-going. For continuity of care of this family handoff to be provided to [facility] social work manager. -CAROLYN Jack, TEACHER SPECIALIST *This note was generated with [employer] dictation software. It may contain incorrect words, spelling, and punctuation that were not noted in review of the chart prior to signing*
--- NOTE | 2021-11-24 11:59 | CASEMGMT ---
Social Work Labor and Delivery Unit Provided patient/mother of baby (MOB) resource list for [facility], packet on mood and anxiety disorders which do include online resources for support and national hotlines. Provided handout on WIC services for [facility]. Received message from NICU social and human services assistant Poornima Turner ([phone]). Handoff given to Poornima for continuity of care of family. [place] law discussed, and as per [place] Act need to refer to children services for marijuana use in . Poornima will follow family while in the NICU. Presented to MOB's room and provided handout on grounding exercise to try as a potential additional coping mechanism. MOB expressed thanks for this information. Took this opportunity to talk with MOB about the [place] Act and being a mandated reported when baby's are exposed to substances in utero. Let MOB know that this parts data writer reviewed this Act to determine whether a referral needs to be made, and let MOB know that referral does need to be made. Educated MOB that this parts data writer informing MOB of this, not to be upsetting but more to make MOB aware. Educated MOB that based on information known, it is likely the referral will not go anywhere (no case opened). MOB voiced being upset and angry about need to even make report, asked this parts data writer to take the information out of this parts data writer's report and that this parts data writer is potentially jeopardizing the MOB's and baby's lives. Explored what is most upsetting to MOB right now. MOB reports does not feel report is necessary and does not want people meddling in the family's lives. MOB voiced comment that this is teaching MOB to not be honest in the future and reportedly told this parts data writer about the use when talking about MOB's father who was sick. Reviewed that this parts data writer assessed for substance use in , and it was already noted in chart about use in , so this was not new information during assessment. Also educated that the [place] Act even encompasses prescribed medications as reasons to make reports. Also reviewed that explored why MOB used, and it was at that time MOB explained use was due to father being sick. This parts data writer acknowledged this information as upsetting, and MOB is allowed to feel however MOB feels right now. Reviewed goal is to help families and ensure access to helpful resources. Reviewed positives in that drug screen was negative, and MOB is voicing intent to remain abstinent, MOB has agreed to [facility] and plans to remain on antidepressant, and appears to love her baby. Let MOB know that many calls are made to [facility] and do not go anywhere, which this parts data writer expects to be the case now. Let MOB know that if this parts data writer did not make the call, the [facility] would have to, as the social workers there are also mandated reporters and it is documented in record about use in . Let MOB know it is good to be honest with providers, that the goal is just to ensure that families have resources in place, provide support, not to separate families. Reviewed positives, acknowledged MOB's feelings, offered MOB opportunity to ask questions to which MOB had none. Call to to [facility], , and spoke with screener Aurea Higgins. Referral due to [place] Act and substance exposed infant in utero. Brief maternal and infant histories provided including status of baby's transfer and social stressors. Per Aurea, report to be screened out at this time. No case to be opened. Handoff to NICU social and human services assistant Poornima Turner at [facility]. Poornima will follow up with family and notify of decision not to open a case at this time, as well as provide additional supports/resources as needed while the family is at the NICU. No other services requested or indicated. -TONY Jack, FINAL CANOE INSPECTOR
== END 2021-11-24 12:00 | disposition home or self-care (01) | DRG 788 ==
LOC: WPOUT 00:42 → WP 00:42 → WPOUT 00:47 → WP 00:47
PROVIDERS: Admitting Provider Obstetrics & Gynecology; Visit Provider Obstetrics & Gynecology
DX: O45.93 Premature separation of placenta, unspecified, third trimester (principal); O99.214 Obesity complicating childbirth; F17.200 Nicotine dependence, unspecified, uncomplicated; F31.9 Bipolar disorder, unspecified; O99.814 Abnormal glucose complicating childbirth; O99.344 Other mental disorders complicating childbirth; O99.334 Smoking (tobacco) complicating childbirth; Z79.899 Other long term (current) drug therapy; Z86.16 Personal history of COVID-19; Z3A.32 32 weeks gestation of pregnancy; Z37.0 Single live birth
CPT/HCPCS: 59025; 59050; 80053; 85025; 85027; 85384; 85610; 85730; 86850; 86900; 86901; 87426; 99218; J7120; A4216; G0378